=== PATIENT | female | born 1965 | race Caucasian/White ===

== ENCOUNTER 2020-08-17 15:33 | Outpatient (CLI) | payer OTHER, SELFPAY ==
--- NOTE | ~2020-08-17 | MM_ITS ---
EXAMINATION: MM screening berta BI w vinny HISTORY: Screening TECHNIQUE: Craniocaudal and mediolateral oblique 3-D tomosynthesis images were obtained and synthetic 2-D images were generated. CAD analysis was submitted and interpreted. COMPARISON: Comparison to multiple prior studies sequentially, with oldest reviewed study dated 05/22. BREAST PARENCHYMAL COMPOSITION: There are scattered areas of fibroglandular density. FINDINGS: There is no evidence of suspicious mass, calcification, or architectural distortion to sugg est malignancy in either breast. There has been no suspicious interval change. IMPRESSION: 1. No mammographic evidence of malignancy. 2. Recommend routine screening mammography in one year. BI-RADS Category 1: Negative Reviewed, dictated and finalized at location A.
== END 2020-08-17 15:34 | disposition home or self-care (01) ==
LOC: ANHIMG 15:42
PROVIDERS: PCP Family Medicine; Visit Provider Obstetrics & Gynecology
DX: Z12.31 Encounter for screening mammogram for malignant neoplasm of breast (principal)
CPT/HCPCS: 77063; 77067

== ENCOUNTER 2020-09-14 10:42 | Outpatient (CLI) | payer OTHER, SELFPAY ==
--- NOTE | ~2020-09-14 | US_ITS ---
EXAMINATION: US venous doppler [facility] DATE: 09/14/2020 11:33 INDICATION: Chronic deep vein thrombosis. TECHNIQUE: Grayscale ultrasound images without and with compression and Doppler ultrasound images of the bilateral lower extremity veins were obtained. COMPARISON: Ultrasound 04/03/2019 FINDINGS: The visualized portions of right common femoral vein, profunda (deep) femoral vein, femoral vein, pop liteal vein, peroneal veins, posterior tibial veins, and greater saphenous vein outflow are patent. The visualized portions of left common femoral vein, profunda femoral vein, femoral vein, popliteal v ein, peroneal veins, posterior tibial veins, and greater saphenous vein outflow are patent. There is a 1.2 seconds reflux in left popliteal vein. IMPRESSION: 1. No deep venous thrombosis. 2. Reflux in left popliteal vein. Reviewed, dictated and finalized at location B. ER COACH
== END 2020-09-14 10:43 | disposition home or self-care (01) ==
LOC: ANHIMG 10:49
PROVIDERS: PCP Family Medicine; Visit Provider Internal Medicine
DX: Z86.718 Personal history of other venous thrombosis and embolism (principal)
CPT/HCPCS: 93970

== ENCOUNTER 2021-07-01 14:40 | Outpatient (CLI) | payer OTHER, SELFPAY ==
--- NOTE | ~2021-07-01 | DEXA_ITS ---
Bone Density Report Name: Roselyn Vazquez Age: 56 Sex: Female Ethnicity: White Date of : 1965 Indication: postmenopausal; prior fracture; Referring Provider: Eran, Orquidea Gates Study: Bone densitometry was performed. Exam Date: July 01, 2021 Accession number: [id number] Bone Density: Region BMD T-score Z-score Classification AP Spine (L3, L4) 1.188 0.8 2.0 Normal Femoral Neck (Left) 0.826 -0.2 0.9 Normal Total Hip (Left) 1.064 1.0 1.7 Normal Total Hip Bilateral Avg 1.033 0.8 1.5 Normal Femoral Neck (Right) 0.884 0.3 1.4 Normal Total Hip (Right) 1.001 0.5 1.2 Normal World Health Organization criteria for BMD impression classify patients as: Normal (T-score at or above -1.0), Osteopenia (T-score between -1.0 and -2.5), or Osteoporosis (T-score at or below -2.5). 10-year Fracture Risk: FRAX not reported because: All T-scores for Spine Total, Hip Total, Femoral Neck at or above -1.0 Clinical Information Provided by Patient: Has had a low trauma fracture Has used the following medications: Vitamin D, Calcium Patient maximum height was 67 Menopause Age: 52 Onset of menses at age 13 Number of children 2 Impression: The patient has normal bone mass. The patient has risk factors, including: previous fracture. Discussion: BONE DENSITY IS ABOVE THE MINIMUM DESIRABLE LEVEL AT ALL SKELETAL SITES TESTED. This patient?s bone mineral density is above the minimum desirable level (T-score -1.0 or better) at all sites measured. The patient should follow a healthful lifestyle (good nutrition with adequate calcium and vitamin D, and appropriate weight-bearing exercise). Follow-Up: Consider repeating this study in 5 years or sooner if there is some new clinical indication. Reported by: [facility] on 07/01/2021 2:58:00 PM. Reviewed, dictated and finalized at location AHardik ADAM
== END 2021-07-01 14:41 | disposition home or self-care (01) ==
LOC: ANHIMG 14:41
PROVIDERS: PCP Family Medicine; Visit Provider Internal Medicine Endocrinology, Diabetes & Metabolism
DX: N95.9 Unspecified menopausal and perimenopausal disorder (principal); Z78.0 Asymptomatic menopausal state
CPT/HCPCS: 77080

== ENCOUNTER 2021-08-19 14:55 | Outpatient (CLI) | payer OTHER, SELFPAY ==
--- NOTE | ~2021-08-19 | MM_ITS ---
EXAMINATION: MM screening berta BI w vinny HISTORY: Screening TECHNIQUE: Craniocaudal and mediolateral oblique 3-D tomosynthesis images were obtained and synthetic 2-D images were generated. CAD analysis was submitted and interpreted. COMPARISON: Comparison to multiple prior studies sequentially, with oldest reviewed study dated 03/2016. BREAST PARENCHYMAL COMPOSITION: The breasts are almost entirely fatty. FINDINGS: There is no evidence of suspicious mass, calcification, or architectural distortion to sugg est malignancy in either breast. There has been no suspicious interval change. IMPRESSION: 1. No mammographic evidence of malignancy. 2. Recommend routine screening mammography in one year. BI-RADS Category 1: Negative Reviewed, dictated and finalized at location A.
== END 2021-08-19 14:56 | disposition home or self-care (01) ==
LOC: ANHIMG 14:57
PROVIDERS: PCP Family Medicine; Visit Provider Obstetrics & Gynecology
DX: Z12.31 Encounter for screening mammogram for malignant neoplasm of breast (principal)
CPT/HCPCS: 77063; 77067

== ENCOUNTER 2021-09-09 14:39 | Outpatient (CLI) | payer OTHER, SELFPAY ==
--- NOTE | ~2021-09-09 | US_ITS ---
EXAMINATION: US venous doppler [facility] DATE: 09/09/2021 15:30 INDICATION: Deep venous thrombosis TECHNIQUE: Grayscale ultrasound images without and with compression and Doppler ultrasound images of the bilateral lower extremity veins were obtained. COMPARISON: None. FINDINGS: The visualized portions of right common femoral vein, profunda (deep) femoral vein, femoral vein, pop liteal vein, posterior tibial veins, peroneal veins, gastrocnemius vein and greater saphenous vein ou tflow are patent. The visualized portions of left common femoral vein, profunda femoral vein, femoral vein, popliteal v ein, posterior tibial veins, peroneal veins, gastrocnemius vein and greater saphenous vein outflow ar e patent. IMPRESSION: 1. No deep venous thrombosis in either lower limb. Reviewed, dictated and finalized at location A.
== END 2021-09-09 14:40 | disposition home or self-care (01) ==
LOC: ANHIMG 14:43
PROVIDERS: PCP Family Medicine; Visit Provider Internal Medicine Medical Oncology
DX: Z86.718 Personal history of other venous thrombosis and embolism (principal)
CPT/HCPCS: 93970

== ENCOUNTER → 2022-10-13 07:52 | Outpatient (CLI) | payer OTHER, SELFPAY ==
--- NOTE | ~2022-10-13 | US_ITS ---
US right upper quadrant DATE: 10/13/2022 08:32 INDICATION: Elevated liver enzymes TECHNIQUE: Real-time imaging of liver, pancreas, gallbladder COMPARISON: None FINDINGS: No pancreatic mass lesion or pancreatic duct dilatation is detected. The pancreatic tail is not optimally imaged due to differences from bowel gas. Hepatic cysts are noted. The liver is otherwise unremarkable. Normal hepatopedal portal venous flow d irection. No gallstones or gallbladder wall thickening or abnormal pericholecystic fluid collection. Negative s onographic Spencer's sign. IMPRESSION: Hepatic cysts Negative gallbladder Reviewed, dictated and finalized at Location A. Reviewed, dictated and finalized at location B. TION AGENT
== END ==
PROVIDERS: PCP Family Medicine; Visit Provider Internal Medicine Endocrinology, Diabetes & Metabolism
DX: R74.01 Elevation of levels of liver transaminase levels (principal); K76.89 Other specified diseases of liver
CPT/HCPCS: 76705

== ENCOUNTER 2022-10-14 14:22 | Outpatient (CLI) | payer OTHER, SELFPAY ==
--- NOTE | ~2022-10-14 | MM_ITS ---
EXAMINATION: MM screening [facility] BI w vinny HISTORY: Screening mammogram TECHNIQUE: Craniocaudal and mediolateral oblique 3-D tomosynthesis images were obtained and synthetic 2-D images were generated. CAD analysis was submitted and interpreted. COMPARISON: 08/19/2021, 08/17/2020, 07/29/2019 BREAST PARENCHYMAL COMPOSITION: There are scattered areas of fibroglandular density. FINDINGS: No suspicious mass, calcification, or architectural distortion are identified in either zeke ast to suggest malignancy. There has been no suspicious interval change. IMPRESSION: 1. No mammographic evidence of malignancy. 2. Recommend routine screening mammography in one year. BI-RADS Category 1: Negative Reviewed, dictated and finalized at location A. FREIGHT CONDUCTOR
== END 2022-10-14 14:23 | disposition home or self-care (01) ==
LOC: ANHIMG 14:26
PROVIDERS: PCP Family Medicine; Visit Provider Family Medicine
DX: Z12.31 Encounter for screening mammogram for malignant neoplasm of breast (principal)
CPT/HCPCS: 77063; 77067

== ENCOUNTER → 2022-10-18 10:39 | Outpatient (CLI) | payer OTHER, SELFPAY ==
--- NOTE | ~2022-10-18 | MR_ITS ---
MRI of the pelvis CLINICAL HISTORY: Leiomyoma of uterus TECHNIQUE: Coronal T2-weighted, T2 fat-sat, and T1-weighted images, sagittal T2-weighted images, and axial T2-weighted, T2 fat sat, and T1-weighted in and out of phase images were performed. Following i ntravenous administration of 20 cc of MultiHance, T1-weighted fat-sat imaging was performed in the ax ial plane. FINDINGS: Uterus is anteverted. Right-sided intramural fibroid is present, T1 and T2 hypointense, clementina suring 5.0 x 4.9 x 5.3 cm. A smaller left-sided intramural fibroid with similar imaging characteristi cs is present, measuring 2.8 x 2.3 x 2.9 cm. There is mild distortion of the endometrial cavity due t o mass effect, but no other endometrial abnormality seen. No thickening of the junctional zone is jose dent. No other adnexal mass seen. Ovaries are not well visualized. No ascites present urinary bladder are u nremarkable. No lymphadenopathy. Visualized bowel loops are unremarkable. Bone marrow signals are unremarkable. IMPRESSION: Fibroid uterus, as detailed above. Reviewed, dictated and finalized at location [] FIELD MANAGER
== END ==
PROVIDERS: PCP Family Medicine
DX: D25.9 Leiomyoma of uterus, unspecified (principal)
CPT/HCPCS: 72197; A9577

== ENCOUNTER 2023-10-20 12:34 | Outpatient (CLI) | payer OTHER, SELFPAY ==
--- NOTE | ~2023-10-20 | MM_ITS ---
EXAMINATION: MM screening berta BI w vinny HISTORY: Screening TECHNIQUE: Craniocaudal and mediolateral oblique 3-D tomosynthesis images were obtained and synthetic 2-D images were generated. CAD analysis was submitted and interpreted. COMPARISON: Comparison to multiple prior studies sequentially, with oldest reviewed study dated 06/15. BREAST PARENCHYMAL COMPOSITION: The breasts are almost entirely fatty. FINDINGS: There is no evidence of suspicious mass, calcification, or architectural distortion to sugg est malignancy in either breast. There has been no suspicious interval change. IMPRESSION: 1. No mammographic evidence of malignancy. 2. Recommend routine screening mammography in one year. BI-RADS Category 1: Negative Reviewed, dictated and finalized at location A. PING COORDINATOR
== END 2023-10-20 12:35 | disposition home or self-care (01) ==
LOC: CHSIMG 12:36
PROVIDERS: PCP Family Medicine; Visit Provider Family Medicine
DX: Z12.31 Encounter for screening mammogram for malignant neoplasm of breast (principal)
CPT/HCPCS: 77063; 77067

== ENCOUNTER 2024-05-29 10:01 | Outpatient (CLI) | payer OTHER, SELFPAY ==
--- NOTE | ~2024-05-29 | XR_ITS ---
XR knee LT 3V Ordering provider: Betsy Olmstead PA-C History: . M25.562 - Pain in left knee . Comparison: November 24, 2014 FINDINGS: BONES: No acute fracture or dislocation. JOINT SPACES: Normal. Marginal osteophytes seen. SOFT TISSUES: Normal. IMPRESSION: No acute osseous abnormality left knee. Mild osteoarthritic changes. Reviewed, dictated and finalized at location A.
== END 2024-05-29 10:02 ==
LOC: MICIMG 10:03
PROVIDERS: PCP Family Medicine; Visit Provider Student in an Organized Health Care Education/Training Program
DX: S89.92XA Unspecified injury of left lower leg, initial encounter (principal); X58.XXXA Exposure to other specified factors, initial encounter; M17.12 Unilateral primary osteoarthritis, left knee
CPT/HCPCS: 73562

== ENCOUNTER 2024-06-03 08:52 | Outpatient (CLI) | payer OTHER, SELFPAY ==
--- NOTE | ~2024-06-03 | MR_ITS ---
MRI of the left knee Clinical history: Injury Technique: Coronal proton density and proton density-weighted images, sagittal proton-density and T2 fat-sat images, and axial proton-density fat-saturated images were acquired. Findings: Anterior and posterior cruciate ligaments are intact. Medial collateral ligament and the la teral collateral ligament complex are intact. Popliteus tendon is intact. There is a radial tear at the posterior root of the medial meniscus. No lateral meniscal tear seen. 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 There is als o grade IV chondromalacia involving the superior aspect of the femoral trochlea. There is a relativel y shallow femoral trochlear groove. There is patchy moderate chondromalacia the medial femoral condyl e. There is moderate to high-grade chondral malacia the lateral femoral condyle towards the joint yasmeen e. Tricompartmental osteophytes are present. Extensor mechanism is intact. Moderate joint effusion present. Moderate Estrella's cyst present. Impression: Radial tear of the posterior root of the medial meniscus. 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 Moderate joint effusion and moderate Estrella's cyst. Reviewed, dictated and finalized at location . Impression: Radial tear of the posterior root of the medial meniscus. 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 Moderate joint effusion and moderate Estrella's cyst.
== END 2024-06-03 08:53 ==
LOC: GOSHIMG 08:53
PROVIDERS: PCP Family Medicine; Visit Provider Student in an Organized Health Care Education/Training Program
DX: S83.242A Other tear of medial meniscus, current injury, left knee, initial encounter (principal); X58.XXXA Exposure to other specified factors, initial encounter; M25.462 Effusion, left knee; M17.12 Unilateral primary osteoarthritis, left knee; M71.22 Synovial cyst of popliteal space [Baker], left knee
CPT/HCPCS: 73721

== ENCOUNTER 2024-11-27 14:43 | Outpatient (CLI) | payer OTHER, SELFPAY ==
--- NOTE | ~2024-11-27 | MM_ITS ---
EXAMINATION: MM screening berta BI w vinny HISTORY: Screening TECHNIQUE: Craniocaudal and mediolateral oblique 3-D tomosynthesis images were obtained and synthetic 2-D images were generated. CAD analysis was submitted and interpreted. COMPARISON: Comparison to multiple prior studies sequentially, with oldest reviewed study dated 07/26. BREAST PARENCHYMAL COMPOSITION: Not Dense: The breasts are almost entirely fatty. FINDINGS: There is no evidence of suspicious mass, calcification, or architectural distortion to sugg est malignancy in either breast. There has been no suspicious interval change. IMPRESSION: 1. No mammographic evidence of malignancy. 2. Recommend routine screening mammography in one year. BI-RADS Category 1: Negative Reviewed, dictated and finalized at location A. AL WORK JOB TITLES
--- OUTSIDE RECORDS SUMMARY | 2024-11-29 02:24 | XMS_ITS | Data Portability ---
Author Organization [facility] [employer], Main Office Address [address] [place] [address] Assessment No assessment recorded. Plan of Treatment Reminders Order Date Submit Date Provider Last Modified By Organization Details Last Modified Time Details Appointments None recorded. Lab vitamin B12 + folate, serum or blood 2022 023 [id number] [facility], [address], [address], [place], [address], 3 14:28:10 TSH + free T4, serum 2022 023 [email or web address] [facility], [address], [place], [address], 3 14:28:10 T3, free, serum or plasma 2022 023 [email or web address] [facility], [address], [place], [address], 3 14:28:10 thyroid peroxidase (tpo) Ab, serum 2022 023 [email or web address] [facility], [address], [place], [address], 3 14:28:10 HbA1c (hemoglobin A1c), blood 2022 023 [email or web address] [facility], [address], [place], [address], 3 14:28:09 insulin, serum 2022 023 [email or web address] [facility], [address], [place], [address], 3 14:28:10 CMP, serum or plasma 2022 023 [email or web address] [facility], [address], [place], [address], 3 14:28:10 lipid panel, serum 2022 023 [email or web address] [facility], [address], [place], [address], 3 12:01:30 Referral None recorded. Procedures None recorded. Surgeries None recorded. Imaging home sleep study 2022 023 [email or web address] [facility] ([facility]), [address] [facility] [facility] [address], [place], [address], 3 12:09:20 Medication Orders cyanocobala min (vit B-12) 1,000 mcg/mL injection solution 2022 023 [id number] [facility], [address] [place], [address], 3 13:54:12 Patient TargetsNo targets recorded. Patient InstructionsNo instructions recorded. Reason for Referral None Reported. Results Created Date Observation Date Name Description Value Unit Range Abnormal Flag Note LastModifiedBy Organization Detail LastModifiedTime 11/08/19 22 11/09/2021 HEMOG LOBIN A1C hemoglobin A1C 5.6 %_of_ total _HGB <5.7 normal Not Available [employer] [facility] [address], [address], 11/09/2021 15:35:57 11/08/19 22 11/09/2021 TSH+F REE T4 TSH 2.92 mIU/L 0.40-4 .50 normal Not Available [employer] [facility] [address] [place] [address], [address], 11/09/2021 15:35:56 11/08/19 22 11/09/2021 TSH+F REE T4 T4, free 1.1 NG/dL 0.8-1. 8 normal Not Available [facility] [address], [address], 11/09/2021 15:35:56 11/08/19 22 11/09/2021 T3, FREE T3, free 3.6 pg/mL 2.3-4. 2 normal Not Available [facility] [address], [address], 11/09/2021 15:35:55 11/08/19 22 11/09/2021 INSUL IN insulin 6.8 uIU/m L normal Refer ence Range < or = 19.6 Risk: Optim al < or = 19.6 Moder ate NA High >19.6 Adult cardi ovasc ular event risk categ ory cut point s (opti mal, moder ate, high) are based on [facility] popul ation data from 10/25 11. This insul in assay shows stron g cross -reac tivit y for some insul in analo gs (lisp ro, aspar t, and glarg ine) and much lower cross -reac tivit y with other s (dete ryne, gluli sine) . Not Available [employer] [address], [address], 11/09/2021 15:35:54 11/08/19 22 11/09/2021 THYRO ID PEROX IDASE ANTIB ODIES thyroid peroxidase antibodies <1 IU/mL <9 normal Not Available [facility] [address], [address], 11/09/2021 15:35:52 11/08/19 22 11/09/2021 COMPR EHENS HERMANN METAB OLIC PANEL glucose 89 mg/dL 65-99 normal Fasti ng refer ence inter phil Not Available [employer] [address] [place], [address], 11/09/2021 15:35:52 11/08/19 22 11/09/2021 COMPR EHENS HERMANN METAB OLIC PANEL urea nitrogen (BUN) 13 mg/dL 7-25 normal Not Available [address], [address], 11/09/2021 15:35:52 11/08/19 22 11/09/2021 COMPR EHENS HERMANN METAB OLIC PANEL creatinine 0.70 mg/dL 0.50-1 .05 normal For patie nts >49 years of age, the refer ence limit for Creat inine is appro ximat ron 13% highe r for peopl e ident ified as Afric an-Am pratibha n. Not Available [address], [address], 11/09/2021 15:35:52 11/08/19 22 11/09/2021 COMPR EHENS HERMANN METAB OLIC PANEL eGFR non-afr. german 97 mL/mi n/1.7 3m2 > or = 60 normal Not Available [address], [address], 11/09/2021 15:35:52 11/08/19 22 11/09/2021 COMPR EHENS HERMANN METAB OLIC PANEL eGFR 112 mL/mi n/1.7 3m2 > or = 60 normal Not Available [facility] [address], [address], 11/09/2021 15:35:52 11/08/19 22 11/09/2021 COMPR EHENS HERMANN METAB OLIC PANEL BUN/creatini ne ratio not applic able (calc ) 6-22 Not Available [facility] [address], [address], 11/09/2021 15:35:52 11/08/19 22 11/09/2021 COMPR EHENS HERMANN METAB OLIC PANEL sodium 139 mmol/ L 135-14 6 normal Not Available [address], [address], 11/09/2021 15:35:52 11/08/19 22 11/09/2021 COMPR EHENS HERMANN METAB OLIC PANEL potassium 4.0 mmol/ L 3.5-5. 3 normal Not Available [address], [address], 11/09/2021 15:35:52 11/08/19 22 11/09/2021 COMPR EHENS HERMANN METAB OLIC PANEL chloride 104 mmol/ L 98-110 normal Not Available [address], [address], 11/09/2021 15:35:52 11/08/19 22 11/09/2021 COMPR EHENS HERMANN METAB OLIC PANEL carbon dioxide 28 mmol/ L 20-32 normal Not Available [address], [address], 11/09/2021 15:35:52 11/08/19 22 11/09/2021 COMPR EHENS HERMANN METAB OLIC PANEL calcium 9.3 mg/dL 8.6-10 .4 normal Not Available [address], [address], 11/09/2021 15:35:52 11/08/19 22 11/09/2021 COMPR EHENS HERMANN METAB OLIC PANEL protein, total 6.4 g/dL 6.1-8. 1 normal Not Available [address], [address], 11/09/2021 15:35:52 11/08/19 22 11/09/2021 COMPR EHENS HERMANN METAB OLIC PANEL albumin 4.3 g/dL 3.6-5. 1 normal Not Available [address], [address], 11/09/2021 15:35:52 11/08/19 22 11/09/2021 COMPR EHENS HERMANN METAB OLIC PANEL globulin 2.1 g/dL_ (calc ) 1.9-3. 7 normal Not Available [address], [address], 11/09/2021 15:35:52 11/08/19 22 11/09/2021 COMPR EHENS HERMANN METAB OLIC PANEL albumin/glob ulin ratio 2.0 (calc ) 1.0-2. 5 normal Not Available [address], [address], 11/09/2021 15:35:52 11/08/19 22 11/09/2021 COMPR EHENS HERMANN METAB OLIC PANEL bilirubin, total 1.0 mg/dL 0.2-1. 2 normal Not Available [address], [address], 11/09/2021 15:35:52 11/08/19 22 11/09/2021 COMPR EHENS HERMANN METAB OLIC PANEL alkaline phosphatase 63 U/L 37-153 normal Not Available [address], [address], 11/09/2021 15:35:52 11/08/19 22 11/09/2021 COMPR EHENS HERMANN METAB OLIC PANEL AST 28 U/L 10-35 normal Not Available [address], [address], 11/09/2021 15:35:52 11/08/19 22 11/09/2021 COMPR EHENS HERMANN METAB OLIC PANEL ALT 36 U/L 6-29 high Not Available [address], [address], 11/09/2021 15:35:52 01/03/20 22 01/04/2022 HEMOG LOBIN A1C hemoglobin A1C 5.4 %_of_ total _HGB <5.7 normal For the purpo se of miriam blevins for the prese nce of diabe macy: <5.7% Consi stent with the absen ce of diabe macy 5.7-6 .4% Consi stent with incre ased risk for diabe macy (pred iabet es) > or =6.5% Consi stent with diabe macy This assay resul t is consi stent with a decre ased risk of diabe macy. Curre ntly, no conse nsus exist s neelam tom use of hemog lobin A1c for diagn osis of diabe macy in child yuri. Accor ding to Ameri can Diabe macy Assoc iatio n (ADA) guide lines , hemog lobin A1c <7.0% repre sents optim al contr ol in non-p regna nt diabe tic patie nts. Diffe rent metri cs may apply to speci fic patie nt popul ation s. Stand ards of Medic al Care in Diabe macy(A DA). Not Available [facility] [address] [address] [place], [address], 01/04/2022 17:31:40 01/03/20 22 01/04/2022 TSH+F REE T4 TSH 3.44 mIU/L 0.40-4 .50 normal Not Available [facility] [address] [address] [place], [address], 01/04/2022 17:31:40 01/03/20 22 01/04/2022 TSH+F REE T4 T4, free 1.2 NG/dL 0.8-1. 8 normal Not Available [facility] [address] [address] [place], [address], 01/04/2022 17:31:40 01/03/20 22 01/04/2022 T3, FREE T3, free 3.7 pg/mL 2.3-4. 2 normal Not Available [facility] [address] [address] [place], [address], 01/04/2022 17:31:39 01/03/20 22 01/04/2022 INSUL IN insulin 8.1 uIU/m L normal Refer ence Range < or = 19.6 Risk: Optim al < or = 19.6 Moder ate NA High >19.6 Adult cardi ovasc ular event risk categ ory cut point s (opti mal, moder ate, high) are based on [facility] popul ation data from 10/25 11. This insul in assay shows stron g cross -reac tivit y for some insul in analo gs (lisp ro, aspar t, and glarg ine) and much lower cross -reac tivit y with other s (dete ryne, gluli sine) . Not Available [employer] [address], [address], 01/04/2022 17:31:38 01/03/20 22 01/04/2022 THYRO ID PEROX IDASE ANTIB ODIES thyroid peroxidase antibodies <1 IU/mL <9 normal Not Available [employer] [address] [address] [place], [address], 01/04/2022 17:31:38 01/03/20 22 01/04/2022 COMPR EHENS HERMANN METAB OLIC PANEL glucose 92 mg/dL 65-99 normal Fasti ng refer ence inter phil Not Available [employer] [address], [address], 01/04/2022 17:31:37 01/03/20 22 01/04/2022 COMPR EHENS HERMANN METAB OLIC PANEL urea nitrogen (BUN) 12 mg/dL 7-25 normal Not Available [facility] [address], [address], 01/04/2022 17:31:37 01/03/20 22 01/04/2022 COMPR EHENS HERMANN METAB OLIC PANEL creatinine 0.66 mg/dL 0.50-1 .05 normal For patie nts >49 years of age, the refer ence limit for Creat inine is appro ximat ron 13% highe r for peopl e ident ified as Afric an-Am pratibha n. Not Available [address], [address], 01/04/2022 17:31:37 01/03/20 22 01/04/2022 COMPR EHENS HERMANN METAB OLIC PANEL eGFR non-afr. german 99 mL/mi n/1.7 3m2 > or = 60 normal Not Available [address], [address], 01/04/2022 17:31:37 01/03/20 22 01/04/2022 COMPR EHENS HERMANN METAB OLIC PANEL eGFR 114 mL/mi n/1.7 3m2 > or = 60 normal Not Available [address], [address], 01/04/2022 17:31:37 01/03/20 22 01/04/2022 COMPR EHENS HERMANN METAB OLIC PANEL BUN/creatini ne ratio not applic able (calc ) 6-22 Not Available [address], [address], 01/04/2022 17:31:37 01/03/20 22 01/04/2022 COMPR EHENS HERMANN METAB OLIC PANEL sodium 141 mmol/ L 135-14 6 normal Not Available [address], [address], 01/04/2022 17:31:37 01/03/20 22 01/04/2022 COMPR EHENS HERMANN METAB OLIC PANEL potassium 3.7 mmol/ L 3.5-5. 3 normal Not Available [address], [address], 01/04/2022 17:31:37 01/03/20 22 01/04/2022 COMPR EHENS HERMANN METAB OLIC PANEL chloride 103 mmol/ L 98-110 normal Not Available [address], [address], 01/04/2022 17:31:37 01/03/20 22 01/04/2022 COMPR EHENS HERMANN METAB OLIC PANEL carbon dioxide 25 mmol/ L 20-32 normal Not Available [address], [address], 01/04/2022 17:31:37 01/03/20 22 01/04/2022 COMPR EHENS HERMANN METAB OLIC PANEL calcium 9.6 mg/dL 8.6-10 .4 normal Not Available [address], [address], 01/04/2022 17:31:37 01/03/20 22 01/04/2022 COMPR EHENS HERMANN METAB OLIC PANEL protein, total 6.4 g/dL 6.1-8. 1 normal Not Available [address], [address], 01/04/2022 17:31:37 01/03/20 22 01/04/2022 COMPR EHENS HERMANN METAB OLIC PANEL albumin 4.1 g/dL 3.6-5. 1 normal Not Available [address], [place], [address], 01/04/2022 17:31:37 01/03/20 22 01/04/2022 COMPR EHENS HERMANN METAB OLIC PANEL globulin 2.3 g/dL_ (calc ) 1.9-3. 7 normal Not Available [address], [address], 01/04/2022 17:31:37 01/03/20 22 01/04/2022 COMPR EHENS HERMANN METAB OLIC PANEL albumin/glob ulin ratio 1.8 (calc ) 1.0-2. 5 normal Not Available [address], [address], 01/04/2022 17:31:37 01/03/20 22 01/04/2022 COMPR EHENS HERMANN METAB OLIC PANEL bilirubin, total 0.7 mg/dL 0.2-1. 2 normal Not Available [address], [address], 01/04/2022 17:31:37 01/03/20 22 01/04/2022 COMPR EHENS HERMANN METAB OLIC PANEL alkaline phosphatase 59 U/L 37-153 normal Not Available [facility] [address] [address] [place], [address], 01/04/2022 17:31:37 01/03/20 22 01/04/2022 COMPR EHENS HERMANN METAB OLIC PANEL AST 17 U/L 10-35 normal Not Available [address] [address] [place], [address], 01/04/2022 17:31:37 01/03/20 22 01/04/2022 COMPR EHENS HERMANN METAB OLIC PANEL ALT 18 U/L 6-29 normal Not Available [facility] [address] [address] [place], [address], 01/04/2022 17:31:37 07/06/20 22 07/07/2022 HEMOG LOBIN A1C hemoglobin A1C 5.5 %_of_ total _HGB <5.7 normal For the purpo se of miriam blevins for the prese nce of diabe macy: <5.7% Consi stent with the absen ce of diabe macy 5.7-6 .4% Consi stent with incre ased risk for diabe macy (pred iabet es) > or =6.5% Consi stent with diabe macy This assay resul t is consi stent with a decre ased risk of diabe macy. Curre ntly, no conse nsus exist s neelam tom use of hemog lobin A1c for diagn osis of diabe macy in child yuri. Accor ding to Ameri can Diabe macy Assoc iatio n (ADA) guide lines , hemog lobin A1c <7.0% repre sents optim al contr ol in non-p regna nt diabe tic patie nts. Diffe rent metri cs may apply to speci fic patie nt popul ation s. Stand ards of Medic al Care in Diabe amcy(A DA). Not Available [facility] [address] [place], [address], 07/07/2022 19:24:21 07/06/20 22 07/07/2022 VITAM IN B12/F OLATE , SERUM PANEL vitamin B12 1064 pg/mL 200-11 00 normal Not Available [facility] [address] [place], [address], 07/07/2022 19:24:21 07/06/20 22 07/07/2022 VITAM IN B12/F OLATE , SERUM PANEL folate, serum 16.5 NG/mL normal Refer ence Range Low: <3.4 Borde rline : 3.4-5 .4 Cara l: >5.4 Not Available [facility] [address] [place], [address], 07/07/2022 19:24:21 07/06/20 22 07/07/2022 TSH TSH 2.54 mIU/L 0.40-4 .50 normal Not Available [facility] [address] [place], [address], 07/07/2022 19:24:20 07/06/20 22 07/07/2022 T4, FREE T4, free 1.2 NG/dL 0.8-1. 8 normal Not Available [facility] [address] [place], [address], 07/07/2022 19:24:20 07/06/2007/07/2022 INSUL IN insulin 7.6 uIU/m L normal Refer ence Range < or = 19.6 Risk: Optim al < or = 19.6 Moder ate NA High >19.6 Adult cardi ovasc ular event risk categ ory cut point s (opti mal, moder ate, high) are based on [facility] popul ation data from 10/25 11. This insul in assay shows stron g cross -reac tivit y for some insul in analo gs (lisp ro, aspar t, and glarg ine) and much lower cross -reac tivit y with other s (dete ryne, gluli sine) . Not Available [employer] [address] [address] [place], [address], 07/07/2022 19:24:20 07/06/20 22 07/07/2022 COMPR EHENS HERMANN METAB OLIC PANEL glucose 100 mg/dL 65-99 high Fasti ng refer ence inter phil For someo ne witho ut known diabe macy, a gluco se value betwe en 100 and 125 mg/dL is consi stent with predi abete s and shoul d be confi rmed with a follo w-up test. Not Available [facility] [address] [address] [place], [address], 07/07/2022 19:24:19 07/06/20 22 07/07/2022 COMPR EHENS HERMANN METAB OLIC PANEL urea nitrogen (BUN) 14 mg/dL 7-25 normal Not Available [facility] [address] [address] [place], [address], 07/07/2022 19:24:19 07/06/20 22 07/07/2022 COMPR EHENS HERMANN METAB OLIC PANEL creatinine 0.63 mg/dL 0.50-1 .03 normal Not Available [facility] [address] [address] [place], [address], 07/07/2022 19:24:19 07/06/20 22 07/07/2022 COMPR EHENS HERMANN METAB OLIC PANEL eGFR 103 mL/mi n/1.7 3m2 > or = 60 normal The eGFR is based on the CKD-E PI 2020 equat ion. To calcu late the new eGFR from a previ ous Creat inine or Cysta faizan C resul t, go to https ://tim mclainy.o rg/pr ofess ional s/ kdoqi /gfr% 5Fcal culat or Not Available [address], [address], 07/07/2022 19:24:19 07/06/20 22 07/07/2022 COMPR EHENS HERMANN METAB OLIC PANEL BUN/creatini ne ratio not applic able (calc ) 6-22 Not Available [address], [address], 07/07/2022 19:24:19 07/06/20 22 07/07/2022 COMPR EHENS HERMANN METAB OLIC PANEL sodium 141 mmol/ L 135-14 6 normal Not Available [address], [address], 07/07/2022 19:24:19 07/06/20 22 07/07/2022 COMPR EHENS HERMANN METAB OLIC PANEL potassium 4.4 mmol/ L 3.5-5. 3 normal Not Available [address], [address], 07/07/2022 19:24:19 07/06/20 22 07/07/2022 COMPR EHENS HERMANN METAB OLIC PANEL chloride 105 mmol/ L 98-110 normal Not Available [address], [address], 07/07/2022 19:24:19 07/06/20 22 07/07/2022 COMPR EHENS HERMANN METAB OLIC PANEL carbon dioxide 27 mmol/ L 20-32 normal Not Available [address], [address], 07/07/2022 19:24:19 07/06/20 22 07/07/2022 COMPR EHENS HERMANN METAB OLIC PANEL calcium 9.7 mg/dL 8.6-10 .4 normal Not Available [address], [address], 07/07/2022 19:24:19 07/06/20 22 07/07/2022 COMPR EHENS HERMANN METAB OLIC PANEL protein, total 6.6 g/dL 6.1-8. 1 normal Not Available [address], [address], 07/07/2022 19:24:19 07/06/20 22 07/07/2022 COMPR EHENS HERMANN METAB OLIC PANEL albumin 4.3 g/dL 3.6-5. 1 normal Not Available [address], [address], 07/07/2022 19:24:19 07/06/20 22 07/07/2022 COMPR EHENS HERMANN METAB OLIC PANEL globulin 2.3 g/dL_ (calc ) 1.9-3. 7 normal Not Available [address], [address], 07/07/2022 19:24:19 07/06/20 22 07/07/2022 COMPR EHENS HERMANN METAB OLIC PANEL albumin/glob ulin ratio 1.9 (calc ) 1.0-2. 5 normal Not Available [address], [address], 07/07/2022 19:24:19 07/06/2007/07/2022 COMPR EHENS HERMANN METAB OLIC PANEL bilirubin, total 0.7 mg/dL 0.2-1. 2 normal Not Available [address], [address], 07/07/2022 19:24:19 07/06/20 22 07/07/2022 COMPR EHENS HERMANN METAB OLIC PANEL alkaline phosphatase 61 U/L 37-153 normal Not Available [address], [address], 07/07/2022 19:24:19 07/06/20 22 07/07/2022 COMPR EHENS HERMANN METAB OLIC PANEL AST 25 U/L 10-35 normal Not Available [facility] [address] [place], [address], 07/07/2022 19:24:19 07/06/20 22 07/07/2022 COMPR EHENS HERMANN METAB OLIC PANEL ALT 33 U/L 6-29 high Not Available [facility] [address] [place], [address], 07/07/2022 19:24:19 09/09/20 22 09/18/2022 DHEA SULFA TE DHEA sulfate 88 mcg/d L 5-167 normal DHEA- S value s fall with advan cing age. For refer ence, the refer ence inter vals for 31-40 year old patie nts are: Male: 93-41 5 mcg/d L Femal e: 19-23 7 mcg/d L Not Available [address] [address] , [place], [address], 09/19/2022 00:05:23 09/09/20 22 09/18/2022 MISAEL SCREE N, IFA, W/REF L TITER AND MARY RN MISAEL screen, ifa negati ve negati ve normal MISAEL IFA is a first line scree n for detec ting the prese nce of up to appro ximat ron 150 autoa ntibo dies in vario us autoi mmune disea ses. A negat hermann MISAEL IFA resul t sugge sts an MISAEL-a ssoci ated autoi mmune disea se is not prese nt at this time, but is not defin itive . If there is high clini sanjana suspi cion for Sjogr en's syndr ome, testi ng for anti- SS-A/ Ro antib geo shoul d be consi dered . Anti- Viktoriya-1 antib geo shoul d be consi dered for clini kristie suspe cted infla mmato ry myopa da . AC-0: Negat hermann Inter natio nal Conse nsus on MISAEL Patte rns (http s://d oi.or g/10. 1515/ [facility]- 2017- 0052) For addit ional infor myra foy e refer to http: //[facility] pete petersonQue stDia gnost ics.c om/fa q/FAQ 177 (This link is being provi ded for infor kendy strauss/ educa madeleine l purpo ses only. ) Not Available [address] [address] [place], [address], 09/19/2022 00:05:22 09/09/20 22 09/18/2022 MITOC HONDR IA M2 ANTIB GEO (IGG) , EIA mitochondria M2 antibody (IgG), EIA <20.0 U Refer ence Range : NEGAT HERMANN: < OR = 20.0 EQUIV OCAL: 20.1- 24.9 POSIT HERMANN: > OR = 25.0 Not Available [address] [address] [place], [address], 09/19/2022 00:05:22 09/09/20 22 09/18/2022 LIVER KIDNE Y MICRO SOME (LKM- 1) AB (IGG) lkm-1 antibody (IgG) <=20.0 U <=20.0 Refer ence Range : <=20. 0 Negat hermann 20.1- 24.9 Equiv ocal >=25. 0 Posit hermann Anti- liver /kidn ey micro somal antib odies (Anti -LKM- 1) were previ ously teste d by indir ect immun ofluo resce nce (IF) using tracey t liver /kidn ey subst rate. Ident ifica tion of a speci fic antib geo targe t as cytoc hrome P450 IID6 has led to the curre nt recom binan t based VAISHNAVI . Antib odies to this cytoc hrome are prese nt in appro ximat ron 70% of patie nts with autoi mmune hepat itis type 2. This antib geo is also prese nt in appro ximat ron 10% of patie nts with hepat itis C infec tion. Not Available [employer] - [address], [address], 09/19/2022 00:05:21 09/09/20 22 09/18/2022 TESTO STERO NE, FREE, BIOAV AILAB LE AND TOTAL , MS albumin 4.3 g/dL 3.6-5. 1 Not Available [address], [address], 09/19/2022 00:05:21 09/09/20 22 09/18/2022 TESTO STERO NE, FREE, BIOAV AILAB LE AND TOTAL , MS sex hormone binding globulin 65.0 nmol/ L 14 Not Available [address], [address], 09/19/2022 00:05:21 09/09/20 22 09/18/2022 TESTO STERO NE, FREE, BIOAV AILAB LE AND TOTAL , MS testosterone , free 2.1 pg/mL 0.2-5. 0 Not Available [address], [address], 09/19/2022 00:05:21 09/09/20 22 09/18/2022 TESTO STERO NE, FREE, BIOAV AILAB LE AND TOTAL , MS testosterone ,bioavailabl e 4.1 NG/dL 0.5-8. 5 Not Available [address], [address], 09/19/2022 00:05:21 09/09/20 22 09/18/2022 TESTO STERO NE, FREE, BIOAV AILAB LE AND TOTAL , MS testosterone , total, MS 31 NG/dL 2-45 For addit ional nabilr myra foy e refer to https ://ed ucati on.qu laura [employer]. com/f aq/FA Q165 (This link is being provi ded for infor kendy nal/e ducat ional purpo ses only. ) (Note ) This test was devel oped and its kecia tical perfo rmanc e tray cteri stics have been deter mined by [employer]. It has not been clear ed or appro nico by the FDA. This assay has been valid ated pursu ant to the CLIA regul ation s and is used for clini sanjana purpo ses. JO ANN wilson [address] [facility] [address] [place] [address] [phone] Raheel mota MD Not Available [address] [address] [place], [address], 09/19/2022 00:05:21 09/09/20 22 09/18/2022 HEPAT ITIS PANEL , ACUTE W/REF RUDY TO CONFI RMATI ON hepatitis A IgM non-re active non-re active normal For addit ional infor myra foy e refer to http: //[email or web address] om/fa q/FAQ (This link is being provi ded for infor kendy strauss/ [facility] only. ) Not Available [facility] [address] [address] [address], [place], [address], 09/19/2022 00:05:20 09/09/20 22 09/18/2022 HEPAT ITIS PANEL , ACUTE W/REF RUDY TO CONFI RMATI ON hepatitis B surface antigen non-re active non-re active normal Not Available [facility] [address] [address] [place], [address], 09/19/2022 00:05:20 09/09/20 22 09/18/2022 HEPAT ITIS PANEL , ACUTE W/REF RUDY TO CONFI RMATI ON hepatitis B core antibody (IgM) non-re active non-re active normal Not Available [facility] [address] [address] [place], [address], 09/19/2022 00:05:20 09/09/20 22 09/18/2022 HEPAT ITIS PANEL , ACUTE W/REF RUDY TO CONFI RMATI ON hepatitis C antibody non-re active non-re active normal Not Available [address] [address] [place], [address], 09/19/2022 00:05:20 09/09/2009/18/2022 HEPAT ITIS PANEL , ACUTE W/REF RUDY TO CONFI RMATI ON index 0.00 <1.00 normal HCV antib geo was non-r eacti ve. There is no labor atory evide nce of HCV infec tion. In most cases , no furth er actio n is requi red. Howev er, if recen t HCV expos ure is suspe cted, a test for HCV RNA (test code 56461 ) is sugnarayan [place]. For addit ional infor kendy retneria e refer to http: //[facility] pete peralta stdia gnost ics.c om/fa q/FAQ 22v1 (This link is being provi ded for infor kendy strauss/ educa madeleine l purpo ses only. ) Not Available [address] , [place], [address], 09/19/2022 00:05:20 09/09/2009/18/2022 IRON, TIBC AND MOUNA TIN PANEL iron, total 94 mcg/d L 45-160 normal Not Available [address] [address] [place], [address], 09/19/2022 00:05:20 09/09/2009/18/2022 IRON, TIBC AND MOUNA TIN PANEL iron binding capacity 339 mcg/d L_(ca lc) 250-45 0 normal Not Available [address] [address] [place], [address], 09/19/2022 00:05:20 09/09/2009/18/2022 IRON, TIBC AND MOUNA TIN PANEL % saturation 28 %_(ca lc) 16-45 normal Not Available [address] [address] [place], [address], 09/19/2022 00:05:20 09/09/20 22 09/18/2022 IRON, TIBC AND MOUNA TIN PANEL ferritin 59 NG/mL 16-232 normal Not Available [address], [address], 09/19/2022 00:05:20 01/28/20 23 02/10/2023 IRON, TIBC AND MOUNA TIN PANEL iron, total 72 mcg/d L 45-160 normal Not Available [address], [address], 02/10/2023 17:43:47 01/28/20 23 02/10/2023 IRON, TIBC AND MOUNA TIN PANEL iron binding capacity 335 mcg/d L_(ca lc) 250-45 0 normal Not Available [address], [address], 02/10/2023 17:43:47 01/28/20 23 02/10/2023 IRON, TIBC AND MOUNA TIN PANEL % saturation 21 %_(ca lc) 16-45 normal Not Available [address], [address], 02/10/2023 17:43:47 01/28/20 23 02/10/2023 IRON, TIBC AND MOUNA TIN PANEL ferritin 47 NG/mL 16-232 normal Not Available [address], [address], 02/10/2023 17:43:47 01/28/20 23 02/10/2023 HEPAT ITIS PANEL , ACUTE W/REF RUDY TO CONFI RMATI ON hepatitis A IgM NON-RE ACTIVE non-re active normal For addit ional myra mcdermott refer to http: //guerline peralta stdia gnost ics.c om/fa q/FAQ 202 (This link is being provi ded for leydi strauss/ leilani hodges ses only. ) Not Available [address] [place], [address], 02/10/2023 17:43:47 01/28/20 23 02/10/2023 HEPAT ITIS PANEL , ACUTE W/REF RUDY TO CONFI RMATI ON hepatitis B surface antigen NON-RE ACTIVE non-re active normal Not Available [address] [address] [place], [address], 02/10/2023 17:43:47 01/28/20 23 02/10/2023 HEPAT ITIS PANEL , ACUTE W/REF RUDY TO CONFI RMATI ON hepatitis B core antibody (IgM) NON-RE ACTIVE non-re active normal Not Available [address], [address], 02/10/2023 17:43:47 01/28/20 23 02/10/2023 HEPAT ITIS PANEL , ACUTE W/REF RUDY TO CONFI RMATI ON hepatitis C antibody NON-RE ACTIVE non-re active normal Not Available [address] , [place], [address], 02/10/2023 17:43:47 01/28/2002/10/2023 HEPAT ITIS PANEL , ACUTE W/REF RUDY TO CONFI RMATI ON index <0.02 <1.00 normal HCV antib geo was non-r eacti ve. There is no labor atory evide nce of HCV infec tion. In most cases , no furth er actio n is requi red. Howev er, if recen t HCV expos ure is suspe cted, a test for HCV RNA (test code 66475 ) is sugge sted. For addit ional infor kendy wilson pleas e refer to http: //[facility] pete peralta stdia gnost ics.c om/fa q/FAQ 22v1 (This link is being provi ded for infor kendy strauss/ educa madeleine l purpo ses only. ) Not Available [address] [address] [place], [address], 02/10/2023 17:43:47 01/28/2002/10/2023 TESTO STERO NE, FREE, BIOAV AILAB LE AND TOTAL , MS albumin 4.3 g/dL 3.6-5. 1 Not Available [address], [address], 02/10/2023 17:43:48 01/28/2002/10/2023 TESTO STERO NE, FREE, BIOAV AILAB LE AND TOTAL , MS sex hormone binding globulin 63.1 nmol/ L 14-73 Not Available [address], [address], 02/10/2023 17:43:48 01/28/2002/10/2023 TESTO STERO NE, FREE, BIOAV AILAB LE AND TOTAL , MS testosterone , free 2.0 pg/mL 0.2-5. 0 Not Available [address], [address], 02/10/2023 17:43:48 01/28/2002/10/2023 TESTO STERO NE, FREE, BIOAV AILAB LE AND TOTAL , MS testosterone ,bioavailabl e 3.9 NG/dL 0.5-8. 5 Not Available [address], [address], 02/10/2023 17:43:48 01/28/2002/10/2023 TESTO STERO NE, FREE, BIOAV AILAB LE AND TOTAL , MS testosterone , total, MS 29 NG/dL 2-45 For addit ional infor myra foy e refer to https ://ed ucati on.qu laura [employer]. com/f aq/FA Q165 (This link is being provi ded for infor kendy nal/e ducat ional purpo ses only. ) (Note ) This test was devel oped and its kecia tical perfo rmanc e tray cteri stics have been deter mined by [employer] panfilo. It has not been clear ed or appro nico by the FDA. This assay has been valid ated pursu ant to the CLIA regul ation s and is used for clini sanjana purpo ses. F med fusio n [address] [place] [address] [phone] Raheel mota MD Not Available [employer] [address] [address] [place], [address], 02/10/2023 17:43:48 01/28/20 23 02/10/2023 COMPR EHENS HERMANN METAB OLIC PANEL glucose 97 mg/dL 65-99 normal Fasti ng refer ence inter phil Not Available [address] [place], [address], 02/10/2023 17:43:48 01/28/20 23 02/10/2023 COMPR EHENS HERMANN METAB OLIC PANEL urea nitrogen (BUN) 16 mg/dL 7-25 normal Not Available [address] [address] [place], [address], 02/10/2023 17:43:48 01/28/20 23 02/10/2023 COMPR EHENS HERMANN METAB OLIC PANEL creatinine 0.71 mg/dL 0.50-1 .03 normal Not Available [address] [address] [place], [address], 02/10/2023 17:43:48 01/28/20 23 02/10/2023 COMPR EHENS HERMANN METAB OLIC PANEL eGFR 99 mL/mi n/1.7 3m2 > or = 60 normal The eGFR is based on the CKD-E PI 2020 equat ion. To calcu late the new eGFR from a previ ous Creat inine or Cysta faizan C norah t, go to https ://tim michael.o jhoana/ilene dumont s/ kdoqi /gfr% 5Fcal culat or Not Available [address] [address] [place], [address], 02/10/2023 17:43:48 01/28/20 23 02/10/2023 COMPR EHENS HERMANN METAB OLIC PANEL BUN/creatini ne ratio NOT APPLIC ABLE (calc ) 6-22 Not Available [address], [address], 02/10/2023 17:43:48 01/28/20 23 02/10/2023 COMPR EHENS HERMANN METAB OLIC PANEL sodium 140 mmol/ L 135-14 6 normal Not Available [address], [address], 02/10/2023 17:43:48 01/28/20 23 02/10/2023 COMPR EHENS HERMANN METAB OLIC PANEL potassium 4.1 mmol/ L 3.5-5. 3 normal Not Available [address], [address], 02/10/2023 17:43:48 01/28/20 23 02/10/2023 COMPR EHENS HERMANN METAB OLIC PANEL chloride 105 mmol/ L 98-110 normal Not Available [address], [address], 02/10/2023 17:43:48 01/28/20 23 02/10/2023 COMPR EHENS HERMANN METAB OLIC PANEL carbon dioxide 28 mmol/ L 20-32 normal Not Available [address], [address], 02/10/2023 17:43:48 01/28/20 23 02/10/2023 COMPR EHENS HERMANN METAB OLIC PANEL calcium 9.2 mg/dL 8.6-10 .4 normal Not Available [address], [address], 02/10/2023 17:43:48 01/28/20 23 02/10/2023 COMPR EHENS HERMANN METAB OLIC PANEL protein, total 6.3 g/dL 6.1-8. 1 normal Not Available [facility] [address] [place], [address], 02/10/2023 17:43:48 01/28/20 23 02/10/2023 COMPR EHENS HERMANN METAB OLIC PANEL albumin 4.3 g/dL 3.6-5. 1 normal Not Available [address], [address], 02/10/2023 17:43:48 01/28/20 23 02/10/2023 COMPR EHENS HERMANN METAB OLIC PANEL globulin 2.0 g/dL_ (calc ) 1.9-3. 7 normal Not Available [address] [address] [place], [address], 02/10/2023 17:43:48 01/28/20 23 02/10/2023 COMPR EHENS HERMANN METAB OLIC PANEL albumin/glob ulin ratio 2.2 (calc ) 1.0-2. 5 normal Not Available [address] [address] [place], [address], 02/10/2023 17:43:48 01/28/20 23 02/10/2023 COMPR EHENS HERMANN METAB OLIC PANEL bilirubin, total 0.7 mg/dL 0.2-1. 2 normal Not Available [address], [address], 02/10/2023 17:43:48 01/28/20 23 02/10/2023 COMPR EHENS HERMANN METAB OLIC PANEL alkaline phosphatase 58 U/L 37-153 normal Not Available [facility] [employer] [address] [address] [place], [address], 02/10/2023 17:43:48 01/28/20 23 02/10/2023 COMPR EHENS HERMANN METAB OLIC PANEL AST 18 U/L 10-35 normal Not Available [address] [address] [place], [address], 02/10/2023 17:43:48 01/28/20 23 02/10/2023 COMPR EHENS HERMANN METAB OLIC PANEL ALT 25 U/L 6-29 normal Not Available [address] [place], [address], 02/10/2023 17:43:48 01/28/20 23 02/10/2023 LIVER KIDNE Y MICRO SOME (LKM- 1) AB (IGG) lkm-1 antibody (IgG) <=20.0 U <=20.0 Refer ence Range : <=20. 0 Negat hermann 20.1- 24.9 Equiv ocal >=25. 0 Posit hermann Anti- liver /kidn ey micro somal antib odies (Anti -LKM- 1) were previ ously teste d by indir ect immun ofluo resce nce (IF) using tracey t liver /kidn ey subst rate. Ident ifica tion of a speci fic antib geo targe t as cytoc hrome P450 IID6 has led to the curre nt recom binan t based VAISHNAVI . Antib odies to this cytoc hrome are prese nt in appro ximat ron 70% of patie nts with autoi mmune hepat itis type 2. This antib geo is also prese nt in appro ximat ron 10% of patie nts with hepat itis C infec tion. Not Available [address] [place], [address], 02/10/2023 17:43:49 01/28/20 23 02/10/2023 MITOC HONDR IA M2 ANTIB GEO (IGG) , EIA mitochondria M2 antibody (IgG), EIA <20.0 U Refer ence Range : NEGAT HERMANN: < OR = 20.0 EQUIV OCAL: 20.1- 24.9 POSIT HERMANN: > OR = 25.0 Not Available [facility] [address] [place], [address], 02/10/2023 17:43:50 01/28/20 23 02/10/2023 MISAEL SCREE N, IFA, W/REF L TITER AND PATTE RN MISAEL screen, ifa NEGATI VE negati ve normal MISAEL IFA is a first line scree n for detec ting the prese nce of up to appro ximat ron 150 autoa ntibo dies in vario us autoi mmune disea ses. A negat hermann MISAEL IFA resul t sugge sts an MISAEL-a ssoci ated autoi mmune disea se is not prese nt at this time, but is not defin itive . If there is high clini sanjana suspi cion for Sjogr en's syndr ome, testi ng for anti- SS-A/ Ro antib geo shoul d be consi dered . Anti- Viktoriya-1 antib geo shoul d be consi dered for clini kristie suspe cted infla mmato ry myopa da . AC-0: Negat hermann Inter natio nal Conse nsus on MISAEL Patte rns (http s://d oi.or g/10. 1515/ [facility]- 2017- 0052) For addit ional infor myra foy e refer to http: //[facility] pete wilson.Que stDia gnost ics.c om/fa q/FAQ 177 (This link is being provi ded for infor kendy nal/ educa madeleine l purpo ses only. ) Not Available [employer] [facility] [address] [place], [address], 02/10/2023 17:43:50 01/28/2002/10/2023 DHEA SULFA TE DHEA sulfate 99 mcg/d L 5-167 normal DHEA- S value s fall with advan cing age. For refer ence, the refer ence inter vals for 31-40 year old patie nts are: Male: 93-41 5 mcg/d L Femal e: 19-23 7 mcg/d L Not Available [employer] [facility] [address] [place], [address], 02/10/2023 17:43:51 01/28/2002/10/2023 INSUL IN insulin 12.1 uIU/m L normal Refer ence Range < or = 18.4 Risk: Optim al < or = 18.4 Moder ate NA High >18.4 Adult cardi ovasc ular event risk categ ory cut point s (opti mal, moder ate, high) are based on Insul in Refer ence Inter phil studi es perfo rmed at [facility] in 2021. Not Available [employer] [address] [place], [address], 02/10/2023 17:43:51 01/28/2002/10/2023 VITAM IN B12/F OLATE , SERUM PANEL vitamin B12 601 pg/mL 200-11 00 normal Not Available [employer] [address], [address], 02/10/2023 17:43:52 01/28/2002/10/2023 VITAM IN B12/F OLATE , SERUM PANEL folate, serum 17.6 NG/mL normal Refer ence Range Low: <3.4 Borde rline : 3.4-5 .4 Cara l: >5.4 Not Available [employer] [address] [address] [place], [address], 02/10/2023 17:43:52 01/28/2002/10/2023 TSH+F REE T4 TSH 2.85 mIU/L 0.40-4 .50 normal Not Available [employer] [address] [place], [address], 02/10/2023 17:43:52 01/28/2002/10/2023 TSH+F REE T4 T4, free 1.2 NG/dL 0.8-1. 8 normal Not Available [employer] [address], [address], 02/10/2023 17:43:52 01/28/2002/10/2023 HEMOG LOBIN A1C hemoglobin A1C 5.9 %_of_ total _HGB <5.7 high For someo ne witho ut known diabe macy, a hemog lobin A1c value betwe en 5.7% and 6.4% is consi stent with predi abete s and shoul d be confi rmed with a follo w-up test. For someo ne with known diabe macy, a value <7% indic ates that their diabe macy is well contr olled . A1c targe ts shoul d be indiv idual ized based on durat ion of diabe macy, age, comor bid condi tions , and other consi derat ions. This assay resul t is consi stent with an incre ased risk of diabe macy. Curre ntly, no conse nsus exist s regar ding use of hemog lobin A1c for diagn osis of diabe macy for child yuri. Not Available [facility] [employer] [address] [place], [address], 02/10/2023 17:43:53 08/04/2008/07/2023 COMPR EHENS HERMANN METAB OLIC PANEL glucose 104 mg/dL 65-99 high Fasti ng refer ence inter phil For someo ne witho ut known diabe macy, a gluco se value betwe en 100 and 125 mg/dL is consi stent with predi abete s and shoul d be confi rmed with a follo w-up test. Not Available [employer] [facility] [address] [address] [place], [address], 08/07/2023 15:48:07 08/04/2008/07/2023 COMPR EHENS HERMANN METAB OLIC PANEL urea nitrogen (BUN) 15 mg/dL 7-25 normal Not Available [employer] [facility] [address] [address] [place], [address], 08/07/2023 15:48:07 08/04/20 23 08/07/2023 COMPR EHENS HERMANN METAB OLIC PANEL creatinine 0.58 mg/dL 0.50-1 .03 normal Not Available [employer] [facility] [address] [address] [place], [address], 08/07/2023 15:48:07 08/04/20 23 08/07/2023 COMPR EHENS HERMANN METAB OLIC PANEL eGFR 105 mL/mi n/1.7 3m2 > or = 60 normal Not Available [address], [address], 08/07/2023 15:48:07 08/04/20 23 08/07/2023 COMPR EHENS HERMANN METAB OLIC PANEL BUN/creatini ne ratio SEE NOTE: (calc ) 6-22 Not Repor adelita: BUN and Creat inine are withi n refer ence range . Not Available [address], [address], 08/07/2023 15:48:07 08/04/20 23 08/07/2023 COMPR EHENS HERMANN METAB OLIC PANEL sodium 140 mmol/ L 135-14 6 normal Not Available [address], [address], 08/07/2023 15:48:07 08/04/20 23 08/07/2023 COMPR EHENS HERMANN METAB OLIC PANEL potassium 4.1 mmol/ L 3.5-5. 3 normal Not Available [address], [address], 08/07/2023 15:48:07 08/04/20 23 08/07/2023 COMPR EHENS HERMANN METAB OLIC PANEL chloride 106 mmol/ L 98-110 normal Not Available [address], [address], 08/07/2023 15:48:07 08/04/20 23 08/07/2023 COMPR EHENS HERMANN METAB OLIC PANEL carbon dioxide 29 mmol/ L 20-32 normal Not Available [address], [address], 08/07/2023 15:48:07 08/04/20 23 08/07/2023 COMPR EHENS HERMANN METAB OLIC PANEL calcium 9.2 mg/dL 8.6-10 .4 normal Not Available [address], [address], 08/07/2023 15:48:07 08/04/20 23 08/07/2023 COMPR EHENS HERMANN METAB OLIC PANEL protein, total 6.5 g/dL 6.1-8. 1 normal Not Available [address], [address], 08/07/2023 15:48:07 08/04/20 23 08/07/2023 COMPR EHENS HERMANN METAB OLIC PANEL albumin 4.4 g/dL 3.6-5. 1 normal Not Available [address], [address], 08/07/2023 15:48:07 08/04/20 23 08/07/2023 COMPR EHENS HERMANN METAB OLIC PANEL globulin 2.1 g/dL_ (calc ) 1.9-3. 7 normal Not Available [address], [address], 08/07/2023 15:48:07 08/04/20 23 08/07/2023 COMPR EHENS HERMANN METAB OLIC PANEL albumin/glob ulin ratio 2.1 (calc ) 1.0-2. 5 normal Not Available [address], [address], 08/07/2023 15:48:07 08/04/20 23 08/07/2023 COMPR EHENS HERMANN METAB OLIC PANEL bilirubin, total 1.0 mg/dL 0.2-1. 2 normal Not Available [address], [address], 08/07/2023 15:48:07 08/04/20 23 08/07/2023 COMPR EHENS HERMANN METAB OLIC PANEL alkaline phosphatase 63 U/L 37-153 normal Not Available [address], [place], [address], 08/07/2023 15:48:07 08/04/20 23 08/07/2023 COMPR EHENS HERMANN METAB OLIC PANEL AST 16 U/L 10-35 normal Not Available [address] [address] [place], [address], 08/07/2023 15:48:07 08/04/20 23 08/07/2023 COMPR EHENS HERMANN METAB OLIC PANEL ALT 22 U/L 6-29 normal Not Available [facility] [address], [address], 08/07/2023 15:48:07 08/04/20 23 08/07/2023 THYRO ID PEROX IDASE ANTIB ODIES thyroid peroxidase antibodies <1 IU/mL <9 Not Available [address], [address], 08/07/2023 15:48:09 08/04/20 23 08/07/2023 INSUL IN insulin 12.6 uIU/m L normal Refer ence Range < or = 18.4 Risk: Optim al < or = 18.4 Moder ate NA High >18.4 Adult cardi ovasc ular event risk categ ory cut point s (opti mal, moder ate, high) are based on Insul in Refer ence Inter phil studi es perfo [facility]med at [facility] in 2021. Not Available [employer] [address], [address], 08/07/2023 15:48:10 08/04/20 23 08/07/2023 VITAM IN B12/F OLATE , SERUM PANEL vitamin B12 1366 pg/mL 200-11 00 high Not Available [employer] [address], [address], 08/07/2023 15:48:11 08/04/20 23 08/07/2023 VITAM IN B12/F OLATE , SERUM PANEL folate, serum 18.3 NG/mL normal Refer ence Range Low: <3.4 Borde rline : 3.4-5 .4 Cara l: >5.4 Not Available [facility] [address], [address], 08/07/2023 15:48:11 08/04/20 23 08/07/2023 T3, FREE T3, free 3.6 pg/mL 2.3-4. 2 normal Not Available [facility] [address], [address], 08/07/2023 15:48:12 08/04/2008/07/2023 TSH+F REE T4 TSH 2.99 mIU/L 0.40-4 .50 normal Not Available [address], [address], 08/07/2023 15:48:13 08/04/20 23 08/07/2023 TSH+F REE T4 T4, free 1.0 NG/dL 0.8-1. 8 normal Not Available [address], [address], 08/07/2023 15:48:13 08/04/2008/07/2023 HEMOG LOBIN A1C hemoglobin A1C 5.6 %_of_ total _HGB <5.7 normal For the purpo se of miriam blevins for the prese nce of diabe macy: <5.7% Consi stent with the absen ce of diabe macy 5.7-6 .4% Consi stent with incre ased risk for diabe macy (pred iabet es) > or =6.5% Consi stent with diabe macy This assay resul t is consi stent with a decre ased risk of diabe macy. Curre ntly, no conse nsus exist s neelam tom use of hemog lobin A1c for diagn osis of diabe macy in child yuri. Accor ding to Ameri can Diabe macy Assoc iatio n (ADA) guide lines , hemog lobin A1c <7.0% repre sents optim al contr ol in non-p regna nt diabe tic patie nts. Diffe rent metri cs may apply to speci fic patie nt popul ation s. Stand ards of Medic al Care in Diabe macy(A DA). Not Available [facility] [address] [address], [place], [address], 08/07/2023 15:48:14 07/02/20 21 07/01/2021 bone densi ty No observ ation record ed. [id number] [facility] (Imaging) [address], [place], [address], 01/04/2023 16:10:40 08/20/20 21 07/01/2021 bone densi ty No observ ation record ed. [id number] [facility] [address], [place], [address], 01/04/2023 16:10:40 10/13/20 22 10/13/2022 US, liver No observ ation record ed. [id number] [facility] [address], [place], [address], 01/04/2023 16:10:40 Result Notes None recorded. Problems Name Problem SNOMED Code Status Onset Date Resolution Date Notes Provider Name and Address Organization Details Recorded Time Prediabetes 885348923 Active 2022 MD Yen [address], [place], [address], [facility] [employer] 3 11:57:23 Jose Miguel thyroiditis 03471546 Active 2022 MD Yen [address], [place], [address], [facility] [employer] 3 11:57:32 Vitamin B12 deficiency (non anemic) 92267014 Active 2022 MD [address], [place], [address], [facility] [employer] [facility] 11:57:41 Sleep apnea 36280000 Active 2022 Orquidea Barillas MD [address], [place], [address], [facility] [employer] [facility] 12:03:04 Problem Notes None recorded. Procedures Surgical History None recorded. Imaging Results Imaging Date Name Status LastModified by Organiz ation Details LastModified Time 07/01/2021 bone density completed [id number] [facility] (Imaging) [address], [place], [address], 01/04/2023 16:10:40 07/01/2021 bone density completed [id number] 026 [facility] [address], [place], [address], 01/04/2023 16:10:40 10/13/2022 US, liver completed [id number] 026 [facility] [address], [place], [address], 01/04/2023 16:10:40 Procedure Notes None recorded. Medical Equipment None Reported. Allergies No known drug allergies Medications Name Sig Start Date Stop Date Status Note LastModified by Organization Details LastModified Time cyclobenzap rine 10 mg tablet 05/18 completed Not Available Not Available Not Available metformin 500 mg tablet TAKE 1 TABLET BY MOUTH DAILY WITH DINNER 01/14 completed Not Available Not Available Not Available hydrocodone 5 mg-acetamin ophen 325 mg tablet 06/22 completed Not Available Not Available Not Available permethrin 5 % topical cream 05/18 completed Not Available Not Available Not Available phentermine 15 mg capsule Take 1 capsule every day by oral route. 07/18 completed Not Available Not Available Not Available amoxicillin 500 mg tablet TAKE 4 TABLETS BY MOUTH 1 HOUR PRIOR TO APPOINTME NT 08/07 completed Not Available Not Available Not Available dexamethaso ne 1 mg tablet Take 1 tablet as needed by oral route at bedtime for 1 day. active Not Available Not Available No t Available cyanocobala min (vit B-12) 1,000 mcg/mL injection solution INJECT 1 ML SUBCUTANE OUSLY EVERY WEEK IN THE MORNING active Not Available Not Available No t Available Trivora (28) 50-30 (6)/75-40(5 )/125-30(10 ) tablet 05/18 completed Not Available Not Available Not Available BD Ultra-Fine Sharee Pen Needle 32 gauge x 5/32 EVERY DAY active Not Available Not Available No t Available Xarelto 20 mg tablet TAKE ONE TABLET BY MOUTH ONCE DAILY, MUST ADMINISTE R WITH EVENING MEAL active Not Available Not Available No t Available BD Insulin Syringe Ultra-Fine 1 mL 31 gauge x 5/16 INJECT B12 SUBCUTANE OUSLY ONCE WEEKLY X 90 DAYS active Not Available Not Available No t Available Jublia 10 % topical solution with applicator 07/18 completed Not Available Not Available Not Available Saxenda 3 mg/0.5 mL (18 mg/3 mL) subcutaneou s pen injector INJECT 3MG SUBCUTANE OUSLY DAILY 02/10 completed Not Available Not Available Not Available Rybelsus 7 mg tablet Take 1 tablet every day by oral route in the morning for 90 days. active Not Available Not Available No t Available Vitals Date Recorded Body mass index (BMI) Body height Oxygen saturation Oxygen saturation in Arterial blood by Pulse oximetry Heart rate Respiratory rate Body temperature Body weight Systolic blood pressure Diastolic blood pressure Provider Name and Address Organization Details Last Updated DateTime 1 40.3 kg/m2 170.18 cm 95 % 95 % 84 /min 18 /min 98.4 [degF] 185645. 24 g 110 mm[Hg] 72 mm[Hg] Not Available [facility] 3 16:10:08 Date Recorded Body mass index (BMI) Body height Oxygen saturation Oxygen saturation in Arterial blood by Pulse oximetry Heart rate Body temperature Body weight Systolic blood pressure Diastolic blood pressure Provider Name and Address Organization Details Last Updated DateTime 1 41.3 kg/m2 170.18 cm 94 % 94 % 82 /min 98.4 [degF] 794126. 39 g 100 mm[Hg] 70 mm[Hg] Not Available [facility] 3 16:10:08 Date Recorded Body mass index (BMI) Body height Oxygen saturation Oxygen saturation in Arterial blood by Pulse oximetry Heart rate Body temperature Body weight Systolic blood pressure Diastolic blood pressure Provider Name and Address Organization Details Last Updated DateTime 2 38.3 kg/m2 170.18 cm 97 % 97 % 72 /min 97.8 [degF] 027975. 33 g 110 mm[Hg] 80 mm[Hg] Not Available [facility] 3 16:10:08 Date Recorded Body mass index (BMI) Body height Oxygen saturation Oxygen saturation in Arterial blood by Pulse oximetry Heart rate Body temperature Body weight Systolic blood pressure Diastolic blood pressure Provider Name and Address Organization Details Last Updated DateTime 2 39.6 kg/m2 170.18 cm 99 % 99 % 67 /min 97.8 [degF] 028056. 15 g 110 mm[Hg] 75 mm[Hg] Not Available [facility] 3 16:10:08 Date Recorded Body height Body mass index (BMI) Body weight Heart rate Body temperature Systolic blood pressure Diastolic blood pressure Provider Name and Address Organization Details Last Updated DateTime 3 170.18 cm 39.3 kg/m2 082518. 68 g 63 /min 97.2 [degF] 120 mm[Hg] 84 mm[Hg] MARNIE Womack [place] [facility] [employer] 3 11:32:22 Social History Question Answer Notes LastModified by Organizat ion Details LastModified Time Tobacco Smoking Status Never Smoker Not Available [facility] 01/04/2023 16:09:54 What Is Your Level Of Alcohol Consumption? Moderate [id number] Information not available 01/04/2023 What Is Your Level Of Caffeine Consumption? Occasional [id number] Information not available 01/04/2023 How Much Tobacco Do You Chew? None [id number] Information not available 01/04/2023 In The 14 Days Before Symptom Onset, Have You Had Close Contact With A Laboratory-confir med COVID-19 While That Case Was Ill? No [id number] Information not available 01/04/2023 In The 14 Days Before Symptom Onset, Have You Had Close Contact With A Person Who Is Under Investigation For COVID-19 While That Person Was Ill? No [id number] Information not available 01/04/2023 Which Illicit Or Recreational Drugs Have You Used? None [id number] Information not available 01/04/2023 Do You Or Have You Ever Used E-cigarettes Or Vape? Never Used Electronic Cigarettes [id number] Information not available 01/04/2023 What Is Your Relationship Status? [id number] Information not available 01/04/2023 Do You Or Have You Ever Used Smokeless Tobacco? Never Used Smokeless Tobacco MIGRATION.[id number] Information not available 01/04/2023 Have You Recently Traveled Abroad? No [id number] Information not available 01/04/2023 Sex: Female Functional Status None recorded. Mental Status None recorded. Family History Relationship Description Onset Age of this Age Resolved Age Notes LastModified by Organization Details LastModified Time Mother Parkinsonism MIGRATION.0 30 [id number] Not available 01/04/2023 16:09:57 Father Hypercholest erolemia [id number].606 [id number] Not available 01/04/2023 16:09:57 Father Dementia [id number].855 [id number] Not available 01/04/2023 16:09:57 Paternal Grandfather Diabetes mellitus MIGRATION.005 [id number] Not available 01/04/2023 16:09:57 Maternal Grandmother Diabetes mellitus [id number].522 [id number] Not available 01/04/2023 16:09:57 Medical History Condition Response EYE PROBLEMS Y USE OF BLOOD THINNERS Y BLOOD CLOTS Y Gynecological HistoryNo gynecological history recorded. Obstetrics History GPAL:G 0 P 0 0 0 0 Past Encounters Encounter ID Performer Location Encounter Start Date Encounter Closed Date Diagnosis/Indication Diagnosis SNOMED-CT Code Diagnosis ICD10 Code Diagnosis Note [id number] [facility] [address] [place] [address] 05/18/2021 00:00:00 05/18/2021 16:08:17 [id number] [facility] [address] [place] [address] 06/22/2021 00:00:00 06/22/2021 21:28:08 [id number] [facility] [address] [place] [address] 01/14/2022 00:00:00 01/14/2022 12:33:28 [id number] [facility] [address] [place] [address] 07/18/2022 00:00:00 07/18/2022 15:30:16 [id number] Orquidea Barillas MD [facility] [address] [place] [address] 02/10/2023 11:15:37 02/10/2023 12:09:20 Prediabetes 807251976 R73.03 a1c of 5.9%- patient wishes to manage naturally and without pharmacoth erapy at this time. Discussed carb counting and how to read food labels. Recommende d patient to utilize the diabetesfo [employer] from the ADA website to help with food preparatio n as this presents ideal carb content per meal so this will make carb counting much easier for patient. Recommende d she incorporat e natural insulin spinner hand s such as pears, apples, cinnamon, damon and sweet potatoes to help mobilize her endogenous insulin. Recommende d up to 150 minutes of moderate level activity/e xercise weekly. Jose Miguel thyroiditis 21 857564 E06.3 TSH and FT4 in range- recommende d a thyroid supplement similiar to actalin by Dr. Popeye Phan that contains, iodine, magnesium, manganese, carnitine and other elements to help maintain endogenous thyroid function and help to reduce swelling to take in meantime to help reduce time frame to burn out and to help with fatigue, hair thinning etc. Vitamin B1 2 deficiency (non anemic) 05029188 E53.8 Trial on B12 injections as she is not having any improvemen t on oral supplement ation. Start at 1000 mcg SQ once weekly x 4 weeks then every other week thereafter . monitor levels. Sleep apnea [id number] G47 .30 send for sleep study as she does have days of chronic fatigue and does notice gasping for breath in middle of night-she lives alone so she doesn't have anyone around to monitor her symptoms closely. Spent up to 26 minutes preparing to see the patient (eg, review of tests), obtaining and/or reviewing separately obtained history, performing a medically appropriat e examinatio n and evaluation , counseling and educating the patient, ordering medication s, tests, along with documentin g clinical informatio n in the electronic health record, bobbi goddard interpreti ng results and communicat ing results to the patient. RTC in 6 months. Patient was provided a handwritte n lab order which contains our fax number. If she chooses to go outside of the [facility] system to obtain labwork she was advised to provide our fax number and my informatio n to the lab she will be obtaining labwork from in order to have her labs properly forwarded over for me to review so there is no loss of follow up due to use of outside network. She was also advised to contact our clinic informing us that she has completed her labwork so we are aware we will need to reach out to the appropriat e laboratory to request her results be forwarded to us so I might have the ability to review and make further medical decision making in her case. She voiced understand ing. Health Concerns Section Related Observation LastModified by Organization Detai ls LastModified Time None Recorded Concern Status LastModified by Organization Details LastModified Time None Recorded Advance Directives Directive None Recorded Payers Encounter Date Sequence Insurance Name Policy Number Policy Wilson Covered Member ID Wilson Member ID Guarantor Name 02/10/2023 1 [employer] - OPEN ACCESS Roselyn Miramontes George [id number] Roselyn Miramontes George Notes Date Note Type Note Provider Name and Address Organization Details Recorded Time 02/10/2023 text/html 57 yo female com es in for follow up in management of hashimotos thyroiditis, prediabetes (A1C of 5.9%) and hair loss/thinning. last seen in Jul at that time we continued saxenda with potential to titrate to 3 mg once daily She stopped taking the saxenda about one month ago- she ended up stopping her phentermine She had vein surgery on January 17 and ended up coming off the phentermine. She had to take it easy and couldn't exercise. She went to the [facility] vein center and had laser surgery to her left lower leg. She wasn't able to get her sleep study; she is by herself- she wakes up once a night to go to the bathroom. She wakes up fatigued some days and notices she gasps for breath most nights. She doesn't wake up too exhausted in the morning. She takes a gummy regularly She didn't continue on the metformin due to concerns of side effects. liver u/s from 10/13/22hepatic cystsnegative gallbladder labs from 01/27/23:glucose 97 mg/dLhepatitis nonreactiveLKM/sydnie chondrial negANA nega1c of 5.9%TSH 2.85 uIU/mlFT4 of 1.2 ng/dLtestosterone 29 ng/dLiron sat 29%Cr normalLFT normal Orquidea Barillas MD [address] [facility], [facility] [address], [place], [address], [place] [facility] 02/10/2023 13:57:09 OBGyn Episode No OBEpisode recorded.
--- OUTSIDE RECORDS SUMMARY | 2024-11-29 02:24 | XMS_ITS | Clinical Summary ---
Author Organization [facility] Address [address] [place] [address]. [place], [place] [address] [place] [id number] Care Team Providers Care Paper Twister Tender Name Role Phone Machelle Coker MD Primary Care Provider [phone] Social History Tobacco Use Types Packs/Day Years Used Date Smoking Tobacco: Never Assessed Comments Unknown Sex and Gender Information Value Date Recorded Sex Assigned at Not on file Legal Sex Female 11:29 AM CDT Gender Identity Not on file Sexual Orientation Not on file Plan of Treatment Health Maintenance Due Date Last Done Comments Cervical Cancer Screening Pap Smear (Age 30 to 64) Every 3 Years 1965 Colorectal Cancer Screening Colonoscopy (10 Years) 1965 Annual Physical 1968 Hepatitis C 1983 DTaP, Tdap and Td Vaccines (1 - Tdap) 1984 Cervical Cancer Screening Pap with HPV Testing (Age 30 to 64) Every 5 Years 1995 Cervical Cancer Screening with HPV 1995 Mammogram Screening 2005 Zoster Vaccines (1 of 2) 2015 COVID-19 Vaccine ( season) 2024 07/05/2021, 06/14/2021 Influenza Adult (#1) 2024 08/19/2021, 08/01/2020, 07/27/2020, Additional history exists Meningococcal Vaccine Aged Out No cale moy eligible based on patient's age to complete this topic Pneumococcal Vaccine: Pediatrics (0 to 5 Years) and At-Risk Patients (6 to 64 Years) Aged Out No longer eligible based on patient's age to complete this topic RSV Immunizations Under 20 Months Aged Out No longer eligible based on patient's age to complete this topic Insurance [employer] OPEN ACCESS [facility] Care Teams Paper Twister Tender Relationship Specialty Start Date End Date Machelle Coker MD [address] [place] [address] PCP - General FAMILY PRACTICE 08/04/22
--- OUTSIDE RECORDS SUMMARY | 2024-11-29 02:24 | XMS_ITS | Data Portability ---
Author Organization [employer] , [facility]_Baldo Address [address] [place] [address] Assessment No assessment recorded. Plan of Treatment Reminders Order Date Submit Date Provider Last Modified By Organization Details Last Modified Time Details Appointments None recorded. Lab noninvasiv e colorectal cancer DNA + occult blood screening, QL, stool 2021 022 [facility] (Cologuard Orders Only), [address], [address], [place], [address], 2 16:52:40 pap, LB 2021 022 [place] [facility], [address] [place], [address], 2 10:33:08 HPV E6+E7 mRNA, qualitativ e PCR, cervix 2022 023 CLAYTON Aguilita Richie, [address] [place] [address], [address], 3 14:35:45 pap, LB 2022 023 [facility], [address] [place], [address], 3 10:25:45 pap, LB 2023 024 Cogo [facility], [address] [place], [address], 4 16:39:41 HPV E6+E7 mRNA, qualitativ e PCR, cervix 2023 024 CLAYTON Aguilita Richie, [address] [place], [address], 4 09:52:15 Referral None recorded. Procedures None recorded. Surgeries None recorded. Imaging MAMMO, screening, digital, bilateral 2021 022 [facility] (Imaging), [facility] [address] [facility], [place], [address], 2 10:33:27 US, pelvis, transabdom inal + transvagin al 2021 022 CLAYTON Not available 2 12:02:12 MAMMO, screening, digital, bilateral [address] (Imaging), [address] [place] [address] [address] [facility], [place], [address], 3 16:37:51 US, pelvis 2022 023 [place] [address] Not available 3 16:37:50 MAMMO, screening, digital, bilateral 2023 024 [facility] (Imaging), [facility] [address] [place] [address], [phone], 4 13:06:37 Medication Orders None recorded. Patient TargetsNo targets recorded. Patient Instructions Encounter Date Encounter Id Patient Instructions Last Modified By Organization Details Last Modified Time 08/04/2022 [id number] A healthy lifestyle: care instructions Not available 08/04/2022 14:35:04 substance use disorder: care instructions Not available 08/04/2022 14:35:03 calcium and vitamin D combination Not available 08/04/2022 14:35:03 depression (wome n only) Not available 08/04/2022 14:35:03 eating healthy foods: care instructions Not available 08/04/2022 14:35:04 exercise program : getting started Not available 08/04/2022 14:35:03 08/10/2023 [id number] A healthy lifestyle: care instructions Not available 08/10/2023 14:22:59 substance use disorder: care instructions Not available 08/10/2023 14:22:58 calcium and vitamin D combination Not available 08/10/2023 14:22:58 depression (wome n only) Not available 08/10/2023 14:22:58 eating healthy foods: care instructions Not available 08/10/2023 14:22:59 exercise program : getting started Not available 08/10/2023 14:22:58 08/15/2024 [id number] body mass index: care instructions Not available 08/15/2024 13:59:48 mammogram: about this test Not available 08/15/2024 13:59:48 Reason for Referral None Reported. Results Created Date Observation Date Name Description Value Unit Range Abnormal Flag Note LastModifiedBy Organization Detail LastModifiedTime 08/05/2008/10/2022 THINP REP TIS PAP clinical information: normal None given Not Available [facility] [address], [address], 08/10/2022 20:02:44 08/05/20 22 08/10/2022 THINP REP TIS PAP LMP: normal NONE GIVEN Not Available [facility] [address], [address], 08/10/2022 20:02:44 08/05/20 22 08/10/2022 THINP REP TIS PAP prev. Pap: normal NONE GIVEN Not Available [facility] [address], [address], 08/10/2022 20:02:44 08/05/20 22 08/10/2022 THINP REP TIS PAP prev. BX: normal NONE GIVEN Not Available [facility] [address], [address], 08/10/2022 20:02:44 08/05/20 22 08/10/2022 THINP REP TIS PAP source: normal Cervi x, Endoc ervix Not Available [address], [address], 08/10/2022 20:02:44 08/05/20 22 08/10/2022 THINP REP TIS PAP statement of adequacy: normal Satis facto ry for evalu ation . Endoc ervic al/tr ansfo rmati on zone compo nent prese nt. Not Available [address] [place], [address], 08/10/2022 20:02:44 08/05/20 22 08/10/2022 THINP REP TIS PAP interpretati on/result: normal Negat janeth for intra epith elial lesio n or malig rj . Not Available [place] [address] [place], [address], 08/10/2022 20:02:44 08/05/20 22 08/10/2022 THINP REP TIS PAP comment: normal This Pap test has been evalu ated with compu ter kobe adelita techn ology . Not Available [place] [address] [place], [address], 08/10/2022 20:02:44 08/05/20 22 08/10/2022 THINP REP TIS PAP cytotechnolo gist: normal KMS, CT( CP) CT Scree gen locat ion: [place] [address] [place] [address] Not Available [address], [address], 08/10/2022 20:02:44 08/05/20 22 08/10/2022 THINP REP TIS PAP comment EXPLA NATOR Y NOTE: The Pap is a scree gen test for cervi sanjana cance r. It is not a diagn ostic test and is subje ct to false negat janeth and false posit janeth resul ts. It is most relia ble when a satis facto ry sampl e, regul norbert obtai fahad, is submi tted with relev ant clini sanjana findi ngs and histo ry, and when the Pap resul t is evalu ated along with histo becca and curre nt clini sanjana infor matio n. Not Available [address], [address], 08/10/2022 20:02:44 08/10/20 23 08/15/2023 THINP REP TIS PAP clinical information: normal None given Not Available [address], [address], 08/15/2023 10:25:45 08/10/20 23 08/15/2023 THINP REP TIS PAP LMP: normal NONE GIVEN Not Available [address], [address], 08/15/2023 10:25:45 08/10/20 23 08/15/2023 THINP REP TIS PAP prev. Pap: normal Not Available [address], [address], 08/15/2023 10:25:45 08/10/20 23 08/15/2023 THINP REP TIS PAP prev. BX: normal NONE GIVEN Not Available [address], [address], 08/15/2023 10:25:45 08/10/20 23 08/15/2023 THINP REP TIS PAP source: normal Cervi x Not Available [address], [address], 08/15/2023 10:25:45 08/10/20 23 08/15/2023 THINP REP TIS PAP statement of adequacy: normal Satis facto ry for evalu ation . Endoc ervic al/tr ansfo rmati on zone compo nent prese nt. Not Available [address] [address] [place], [address], 08/15/2023 10:25:45 08/10/2008/15/2023 THINP REP TIS PAP interpretati on/result: normal Cytol ogy Resul ts: Negat janeth for intra epith elial lesio n or malig rj . Not Available [address] [address] [place], [address], 08/15/2023 10:25:45 08/10/2008/15/2023 THINP REP TIS PAP comment: normal This Pap test has been evalu ated with compu ter kobe adelita techn ology . Not Available [place] [address] [address] [place], [address], 08/15/2023 10:25:45 08/10/2008/15/2023 THINP REP TIS PAP cytotechnolo gist: normal AMW, CT( CP) CT scree gen locat ion: [place] [address] [place] [address] Not Available [place] [address] [place], [address], 08/15/2023 10:25:45 08/10/2008/15/2023 THINP REP TIS PAP comment EXPLA NATOR Y NOTE: The Pap is a scree gen test for cervi sanjana cance r. It is not a diagn ostic test and is subje ct to false negat janeth and false posit janeth resul ts. It is most relia ble when a satis facto ry sampl e, regul norbert obtai fahad, is submi tted with relev ant clini sanjana findi ngs and histo ry, and when the Pap resul t is evalu ated along with histo becca and curre nt clini sanjana infor matio n. Not Available [place] [address] [address] [place], [address], 08/15/2023 10:25:45 08/10/20 23 08/17/2023 HPV GENOT YPE HPV 16 Negati ve negati ve normal Not Available [address], [address], 08/17/2023 14:35:45 08/10/20 23 08/17/2023 HPV GENOT YPE HPV 18/45 Negati ve negati ve normal Assay can diffe renti ate HPV 16 from HPV 18 and/o r HPV 45. But canno t diffe renti ate betwe en 18 and 45. Not Available [address], [address], 08/17/2023 14:35:45 08/10/20 23 08/11/2023 HPV HIGH RISK HPV high risk POSITI VE negati ve abnormal The HPV High Risk assay is inten ded for use as co-te sting with cytol ogy and not as a subst itute for regul ar cervi sanjana cytol ogy scree gen. This assay is not inten ded for use as a scree gen devic e for women under age 30 with jeff l cervi sanjana cytol ogy. Not Available [address], [address], 08/17/2023 14:35:46 08/15/20 24 08/16/2024 HPV HIGH RISK HPV high risk Negati ve negati ve normal The HPV High Risk assay is inten ded for use as co-te sting with cytol ogy and not as a subst itute for regul ar cervi sanjana cytol ogy scree gen. This assay is not inten ded for use as a scree gen devic e for women under age 30 with jeff l cervi sanjana cytol ogy. Not Available [address], [address], 08/17/2024 09:52:15 08/15/20 24 08/21/2024 THINP REP TIS PAP clinical information: normal None given Not Available [facility] [place], [address], 08/21/2024 16:39:41 08/15/2008/21/2024 THINP REP TIS PAP LMP: normal NONE GIVEN Not Available [address], [address], 08/21/2024 16:39:41 08/15/2008/21/2024 THINP REP TIS PAP prev. Pap: normal NONE GIVEN Not Available [address], [address], 08/21/2024 16:39:41 08/15/2008/21/2024 THINP REP TIS PAP prev. BX: normal NONE GIVEN Not Available [address], [address], 08/21/2024 16:39:41 08/15/2008/21/2024 THINP REP TIS PAP source: normal Cervi x Not Available [address], [address], 08/21/2024 16:39:41 08/15/2008/21/2024 THINP REP TIS PAP statement of adequacy: normal Satis facto ry for evalu ation . Endoc ervic al/tr ansfo rmati on zone compo nent absen t. Not Available [address], [address], 08/21/2024 16:39:41 08/15/2008/21/2024 THINP REP TIS PAP interpretati on/result: normal Cytol ogy Resul ts: Negat janeth for intra epith elial lesio n or malcullen rj . Not Available [address], [address], 08/21/2024 16:39:41 08/15/2008/21/2024 THINP REP TIS PAP comment: normal This Pap test has been evalu ated with compu rubi techn ology . Not Available [place] [address] [place], [address], 08/21/2024 16:39:41 08/15/20 24 08/21/2024 THINP REP TIS PAP cytotechnolo gist: normal MARILYN, CT( CP) CT scree gen locat ion: [place] [address] [place] [address] Not Available [employer] [place] [address] [address], [place], [address], 08/21/2024 16:39:41 08/15/20 24 08/21/2024 THINP REP TIS PAP comment EXPLA NATOR Y NOTE: The Pap is a scree gne test for cervi sanjana cance r. It is not a diagn ostic test and is subje ct to false negat janeth and false posit janeth resul ts. It is most relia ble when a satis facto ry sampl e, regul norbert obtai fahad, is submi tted with relev ant clini sanjana findi ngs and histo ry, and when the Pap resul t is evalu ated along with histo becca and curre nt clini sanjana infor matio n. Not Available [address], [place], [address], 08/21/2024 16:39:41 09/08/20 22 09/06/2022 US, pelvi s, trans abdom inal + trans vagin al No observ ation record ed. [facility] [address], [place], [address], 09/08/2022 13:09:03 11/09/19 23 10/18/2022 MRI, pelvi s, w/o contr ast No observ ation record ed. [facility] [address], [place], [address], 11/18/2022 11:03:54 10/0508/10/2023 US, pelvi s, trans abdom inal + trans vagin al No observ ation record ed. [facility] [address], [place], [address], 08/10/2023 15:13:48 Result Notes None recorded. Problems Name Problem SNOMED Code Status Onset Date Resolution Date Notes Provider Name and Address Organization Details Recorded Time Breast neoplasm screenin g status 596783598 Completed 201709/17/2018 Encounte r for other screenin g for malignan t neoplasm of breast; Progress : Stable Added By: Gabi Cleary Add to Current Problems : NO ProblemS tatus: Resolve Not Available [facility] 2 14:44:22 Abnormal findings on diagnost ic imaging of breast [id number] Completed 201707/31/2020 Other (abnorma l) findings on radiolog ical examinat ion of breast; Location : None Progress : Stable Added By: Cherrie Hensley Add to Current Problems : NO ProblemS tatus: Current Other (abnorma l) findings on radiolog ical examinat ion of breast; Progress : Stable Added By: Cherrie Hensley Add to Current Problems : NO ProblemS tatus: Resolve Not Available [facility] 2 14:44:22 Breast neoplasm screenin g NOS Completed 201709/17/2018 Screenin g for breast cancer, unspecif ied; Location : None Severity : Moderate Progress : Stable Added By: Gabi Cleary Add to Current Problems : YES ProblemS tatus: Resolve Not Available [facility] 1 06:00:39 Uterine leiomyom a 68248507 Active 2020 Naomy Reyez MD [address] [place] [address], [phone] , [employer] [facility] 2 11:23:48 Irritabl e bowel syndrome 30703552 Active 2021 Naomy Reyez MD [address] [place] [address], [phone] , [employer] [facility] 2 11:24:00 Hypothyr oidism 94212189 Active 2021 Naomy Reyez MD [address] [place] [address], [phone] , [employer] [facility] [employer] [facility] 2 11:24:07 Deep venous thrombos is 121869131 Active 2021 h/o LLE DVT Naomy Reyez MD [address] [place] [address], [phone] , [employer] [facility] 2 11:24:30 Human papillom a virus infectio n 929067504 Active 2021 2016 - positive Naomy Reyez MD [address] [place] [address], [phone] , [facility] [employer] [facility] 2 11:25:01 Obesity 065683481 Active 2021 Naomy Reyez MD [address] [place] [address], [phone] , [employer] [facility] 2 11:25:50 Problem Notes None recorded. Procedures Surgical History Date Name Laterality Status Provider Name and Address Organization Details Recorded Time 10/20/20 23 Most Recent Mammogram completed [facility] [employer] [facility] 08/15/2024 13:11:28 08/10/20 23 Date of Last Pap Smear completed Naomy Reyez MD [address] [place] [address], [phone], [employer] [facility] 08/16/2023 09:49:04 07/03/20 23 Date of Last Colonoscopy completed Naomy Reyez MD [address] [place] [address], [phone], [employer] [facility] 08/10/2023 08:22:46 11/06/19 21 Most Recent Bone Density completed Memo Bird [employer] [facility] 08/15/2024 13:11:28 appendectomy completed [facility] [employer] [employer] [facility] 07/29/2022 14:43:51 section completed [facility] [employer] [facility] 07/29/2022 14:44:03 operation on lacrimal system completed [facility] [employer] [facility] 08/15/2024 13:16:05 [facility] [employer] 08/15/2024 13:16:18 Imaging Results Imaging Date Name Status LastModified by Organization Details LastModified Time 09/06/2022 US, pelvis, transabdominal + transvaginal completed [facility] [address], [place], [address], 09/08/2022 13:09:03 10/18/2022 MRI, pelvis, w/o contrast completed [facility] [address], [place], [address], 11/18/2022 11:03:54 08/10/2023 US, pelvis, transabdominal + transvaginal completed [facility] [address], [place], [address], 08/10/2023 15:13:48 Procedure Notes None recorded. Medical Equipment None Reported. Allergies No known drug allergies Medications Name Sig Start Date Stop Date Status Note LastModified by Organization Details LastModified Time metformin 500 mg tablet TAKE 1 TABLET BY MOUTH DAILY WITH DINNER 08/01 completed Not Available Not Available Not Available prednison e 10 mg tablet TAKE 1 TABLET BY MOUTH TWICE A DAY 08/15 completed Not Available Not Available Not Available tramadol 50 mg tablet TAKE 1 TABLET BY MOUTH EVERY 6 HOURS NEEDED FOR PAIN 08/15 completed Not Available Not Available Not Available amoxicill in 500 mg tablet TAKE 4 TABLETS BY MOUTH 1 HOUR PRIOR TO APPOINTM ENT 08/10 completed Not Available Not Available Not Available cyanocoba brandon (vit B-12) 1,000 mcg/mL injection solution INJECT 1 ML SUBCUTAN EOUSLY EVERY WEEK IN THE MORNING active Not Available Not Available No t Available Vitamin D3 25 mcg (1,000 unit) capsule Take 1 capsule( s) by mouth daily 08/10 completed Vitamin D3 25 mcg (1,000 unit) oral capsule RxNorm: 094211 Allow Substitu tion: True Refill Denied: No Refill DateOccu rred: 04/13/20 18 Edited by: wendyhei wade(Sarabjit Carrizalesl ) on 07/31/20 Stopped by: wendyhei wade(Sarabjit Carrizalesl ) on Not Available Not Available Not Available Cinnamon 500 mg capsule Take by oral route. active Not Available Not Available No t Available lysine active Not Available Not Availa ble Not Available magnesium active Not Available Not Joslyn ilable Not Available melatonin active Not Available Not Joslyn ilable Not Available Vitamin C active Not Available Not Joslyn ilable Not Available vitamin A active Not Available Not Joslyn ilable Not Available L-Glutami ne active Not Available Not Available Not Available coenzyme Q10 08/10 completed Coenzyme Q10 Allow Substitu tion: True Refill Denied: No Refill DateOccu rred: 04/13/20 Edited by: wendyhei wade(Diamond Carrizales ) on 07/31/20 Stopped by: grover wade(Diamond Carrizales ) on Not Available Not Available Not Available Vitamin D3 active Not Available Not Available Not Available multivita min active Not Available Not Available Not Available Multivita mins 08/10 completed Multivit amins Allow Substitu tion: True Refill Denied: No Refill DateOccu rred: 04/13/20 18 Edited by: marielai wade(Sarabjit Carrizalesl ) on 07/31/20 Stopped by: wendyhei wade(Sarabjit Carrizalesl ) on Not Available Not Available Not Available green tea extract active Not Available Not Available Not Available calcium 600 mg (as carbonate )-vitamin D3 10 mcg (400 unit) tablet Take 1 tablet(s ) by mouth daily 08/10 completed calcium carbonat e-vitami n D3 600 mg(1,500 mg) -400 unit oral tablet RxNorm: 212148 Allow Substitu tion: True Refill Denied: No Refill DateOccu rred: 04/13/20 Edited by: wendyhei wade(Sarabjit Carrizalesl ) on 07/31/20 Stopped by: wendyhei wade(Diamond Carrizales ) on Not Available Not Available Not Available CoQ-10 100 mg capsule Take by oral route. active Not Available Not Available No t Available Joint Support 08/10 completed Joint support Refill Denied: No Refill DateOccu rred: 07/31/20 Edited by: Diamond Natarajan ) on 07/31/20 Stopped by: grover olvera(Diamond Carrizales ) on Not Available Not Available Not Available BD Ultra-Fin e Sharee Pen Needle 32 gauge x 5/32 EVERY DAY 08/15 completed Not Available Not Available Not Available Xarelto 20 mg tablet TAKE ONE TABLET BY MOUTH ONCE DAILY, MUST ADMINIST ER WITH EVENING MEAL active Not Available Not Available No t Available BD Insulin Syringe Ultra-Fin e 1 mL 31 gauge x 5/16 INJECT B12 SUBCUTAN EOUSLY ONCE WEEKLY FOR 90 DAYS 08/15 completed Not Available Not Available Not Available d-mannose active Not Available Not Joslyn ilable Not Available Jublia 10 % topical solution with applicato r active Not Available Not Available Not Available Saxenda 3 mg/0.5 mL (18 mg/3 mL) subcutane ous pen injector INJECT 3MG UNDER THE SKIN DAILY 08/10 completed Not Available Not Available Not Available calcium 1,000 mg (as calcium carbonate 2,500 mg) effervesc ent tablet Take by oral route. active Not Available Not Available No t Available zinc (citrate) 11 mg chewable tablet Take by oral route. active Not Available Not Available No t Available Vitals Date Recorded Body height Provider Name an d Address Organization Details Last Updated DateTime 08/04/2022 170.18 cm [facility] [employer] 08/04/2022 14:26:53 Date Recorded Body mass index (BMI) Body weight Provider Name and Address Organization Details Last Updated DateTime 08/04/2022 38.7 kg/m2 405317.6 g [facility] 08/04/2022 14:26:48 Date Recorded Body height Provider Name an d Address Organization Details Last Updated DateTime 09/06/2022 170.18 cm [facility] [employer] [facility] 09/06/2022 14:39:56 Date Recorded Body mass index (BMI) Body weight Provider Name and Address Organization Details Last Updated DateTime 09/06/2022 38.9 kg/m2 086161.34 g Tali Bautista [facility] 09/06/2022 14:43:34 Date Recorded Body height Provider Name an d Address Organization Details Last Updated DateTime 08/10/2023 170.18 cm Yakelin Bertrand [facility] 08/10/2023 13:34:17 Date Recorded Body temperature Provider Name a nd Address Organization Details Last Updated DateTime 08/10/2023 97.8 [degF] Yakelin Bertrand [facility] 08/10/2023 13:42:45 Date Recorded Body mass index (BMI) Body weight Provider Name and Address Organization Details Last Updated DateTime 08/10/2023 38.3 kg/m2 645000.98 g Yakelin Bertrand [facility] 08/10/2023 13:59:33 Date Recorded Body weight Provider Name an d Address Organization Details Last Updated DateTime 08/15/2024 614898.92 g [facility] 08/15/2024 13:09:59 Date Recorded Body mass index (BMI) Provider Name and Address Organization Details Last Updated DateTime 08/15/2024 37.8 kg/m2 Memo Bird [facility] 08/15/2024 13:19:33 Date Recorded Body height Provider Name an d Address Organization Details Last Updated DateTime 08/15/2024 170.18 cm [facility]o [facility] 08/15/2024 13:19:34 Date Recorded Systolic blood pressure Diastolic blood pressure Provider Name and Address Organization Details Last Updated DateTime 08/04/2022 128 mm[Hg] 80 mm[Hg] Tali Bautista [facility] 08/04/2022 14:26:34 Date Recorded Systolic blood pressure Diastolic blood pressure Provider Name and Address Organization Details Last Updated DateTime 09/06/2022 132 mm[Hg] 80 mm[Hg] Tali Bautista [facility] 09/06/2022 14:43:27 Date Recorded Systolic blood pressure Diastolic blood pressure Provider Name and Address Organization Details Last Updated DateTime 08/10/2023 128 mm[Hg] 84 mm[Hg] Yakelin Bertrand [facility] 08/10/2023 13:59:38 Date Recorded Systolic blood pressure Diastolic blood pressure Provider Name and Address Organization Details Last Updated DateTime 08/15/2024 126 mm[Hg] 86 mm[Hg] Memo Bird [employer] [facility] 08/15/2024 13:19:28 Social History Question Answer Notes LastModified by Organizat ion Details LastModified Time Tobacco Smoking Status Never Smoker Susu zamudio, ID [employer] [facility] 07/29/2022 14:45:18 What Is Your Level Of Alcohol Consumption? Moderate Information not available 08/10/2023 How Many Years Have You Consumed Alcohol? 20 Information not available 08/15/2024 Are You Blind Or Do You Have Difficulty Seeing? No [email or web address] Information not available 08/10/2023 Are You Currently Employed? No Information not available 07/29/2022 Are You Deaf Or Do You Have Serious Difficulty Hearing? No [email or web address] Information not available 08/10/2023 What Type Of Diet Are You Following? REGULAR [email or web address] Information not available 08/04/2022 Do You Or Have You Ever Used E-cigarettes Or Vape? Never Used Electronic Cigarettes Information not available 08/10/2023 How Many Children Do You Have? 2 Information not available 07/29/2022 What Is Your Relationship Status? [email or web address] Information not available 08/04/2022 Are You Sexually Active? Yes Information not available 08/15/2024 Do You Use Any Illicit Or Recreational Drugs? No Information not available 07/29/2022 Have You Used IV Drugs? No Information not available 08/10/2023 Do You Or Have You Ever Used Any Other Forms Of Tobacco Or Nicotine? No Information not available 07/29/2022 Sex: Unknown Functional Status Question Answer Note LastModified by Organization D etails LastModified Time What is your exercise level? Moderate Information not available 08/10/2023 Mental Status None recorded. Family History Relationship Description Onset Age of this Age Resolved Age Notes LastModified by Organization Details LastModified Time Mother Parkinson's disease API-27 Not available 2023 12:46:26 Mother Osteoporosis Not avai lable 07/29/2022 14:44:33 Medical History Condition Response High Blood Pressure N Kidney Stones N Blood Diseases N Cytomegalovirus N Hyperthyroidism N MRSA N Blood Transfusion N COPD N Depression N Incontinence N Anxiety Disorder N Muscle, Joint, or Bone Problems N Autoimmune disease N Obesity N Vision or Eye Problems N Arthritis N Auditory Hallucinations N Polycystic Ovarian Syndrome N Mental Disorder N Hematuria N Stroke N Varicosities N Seasonal allergies N Crohn's Disease N Alzheimer's/Dementia N COPD/Emphysema N Kidney Infection N Fibromyalgia N Kidney Disease N Gallbladder disease N Von Willebrand disease N Ear or Hearing Problems N Hospitalizations N Learning Disorder N Skin Problems N Eating Disorder N Diabetes Mellitus (non-insulin dependent ) N MRSA exposure N Ovarian Problems N Constipation N Brain Injury N Frequent Urinary Tract infections N Osteopenia N GERD (reflux) N Visual Hallucinations N Diabetes (insulin dependent) N Tuberculosis N AIDS/HIV N Asthma N Heart Attack N Endometrial Cancer N GERD/Reflux N Hepatitis N Pulmonary Embolism N Chronic Ear Infections N RPR N Autism Spectrum Disorder (ASD) N Chicken Pox N Other Cancer N Thyroid Disease N Colon Cancer N Herpes (HSV) N Breast Cancer N Lung Cancer N Developmental or Behavioral Disorders N Difficulty Swallowing N Panic Attacks N Neurological Disorder N Deep Vein Thrombosis Y Meniere's disease N Tuberculosis/Positive PPD N Shingles N Cervical Cancer N Chlamydia N HPV/Genital Warts N Endometriosis N Bladder or Kidney Problems N High Cholesterol N Liver Disease N Psychiatric/Mental Health Condition N Schizophrenia N Ulcer N Allergies/Hayfever N HIV N Sickle Cell Disease/Trait N ADD/ADHD N Anemia N Multiple Sclerosis N Gonorrhea N Mental Illness N Headaches/migraines N Ovarian Cancer N Bedwetting N Seizures/Epilepsy N Fibroids Y Amnesia N Congestive Heart Failure (CHF) N Diverticulitis N Lupus N Rubella N Blood Clotting Disorder Y Bipolar Disorder N Reflux/GERD N Diabetes Mellitus (during ) N Ulcerative Colitis N Heart Disease N Tourette Syndrome N Osteoporosis N Gynecological History Statement/Question Response If Post Menopausal, Age at Menopause 55 Date of Last Colonoscopy 07/03/2023 Date of LMP Most Recent Bone Density 11/06/2020 Date of Last Pap Smear 08/10/2023 Most Recent Mammogram 10/20/2023 Current Control Method Menopause Age at Menarche Obstetrics History GPAL:G 2 P 2 0 0 2 Type Value Multiple Births 0 Full Term 2 Induced 0 Spontaneous 0 Premature 0 Living 2 Ectopics 0 Total 2 Immunizations Vaccine Type Date Status Note Provider Nam e and Address Organization Details Recorded Time COVID-19, mRNA, LNP-S, PF, 10 mcg/0.2 mL dose, vandana-sucrose 06/14/2021 completed Yakelin zamudio, [facility] [employer] 08/10/2023 13:35:26 COVID-19, mRNA, LNP-S, PF, 10 mcg/0.2 mL dose, vandana-sucrose 07/05/2021 completed Yakelin zamudio, [facility] [employer] IV 08/10/2023 13:35:26 Past Encounters Encounter ID Performer Location Encounter Start Date Encounter Closed Date Diagnosis/Indication Diagnosis SNOMED-CT Code Diagnosis ICD10 Code Diagnosis Note [id number] Naomy Reyez MD [address] [address] 08/04/2022 13:57:13 08/04/2022 15:20:42 Gynecologic examination 33766114 Z01.419 Cologard for colon cancer screening. Screening for malignant neoplasm of cervix 367253315 Z12.4 Screening for malignant neoplasm of breast 574195060 Z12.39 Screening for malignant neoplasm of colon 857408191 Z12.11 Uterine leiomyoma 312301 05 D25.9 follow up for u/s [id number] Naomy Reyez MD [address] [address] 09/06/2022 14:06:21 09/06/2022 15:02:36 Uterine leiomyoma 16190130 D25.9 Discussed presence of fibroids. We reviewed the different treatment options for fibroids including hormonal contracept garry, [place] and hysterecto my. Risks and benefits were reviewed for each of these options. Patient is most interested in hysterecto my given the permanent nature of this option. At least hysterosco py/D&C recommende d Endometrium thickened 44 8546917 R93.89 [id number] Naomy Reyez MD [address] [address] 08/10/2023 12:13:38 08/10/2023 16:37:50 Uterine leiomyoma 88765798 D25.9 Uterine fibroids stable in size. No bleeding. No pain. 30 minutes spent reviewing history, counseling and documentat ion of today's patient visit. Gynecologi c examination 74318404 Z01.419 Screening for malignant neoplasm of cervix 900367676 Z12.4 Screening for malignant neoplasm of breast 240075885 Z12.39 Depression screening 171 593493 Z13.31 [id number] Naomy Reyez MD [facility] [address] [place] [address] 08/15/2024 12:46:25 08/15/2024 14:27:09 Gynecologic examination 52466317 Z01.419 Screening for malignant neoplasm of cervix 256285638 Z12.4 Screening for malignant neoplasm of breast 250100007 Z12.31 Depression screening 171 662454 Z13.31 refer to intake screening Intramural leiomyoma of uterus 71453156 D25.1 D25.0 D25.2 Non-surgic al approach due to menopause status and current lack of significan t uterine symptoms. If pap outcomes remain abnormal, serious contemplat ion of hysterecto my can be revisited as a conclusive interventi on informed by systematic risk-benef it assessment s. Health Concerns Section Related Observation LastModified by Organization Detai ls LastModified Time None Recorded Concern Status LastModified by Organization Details LastModified Time None Recorded Advance Directives Directive None Recorded Payers Encounter Date Sequence Insurance Name Policy Number Policy Wilson Covered Member ID Wilson Member ID Guarantor Name 08/04/2022 1 [employer] - [employer] - OPEN ACCESS Roselyn Miramontes Rehkemper [id number] OI Roselyn Miramontes Rehkemper 09/06/2022 1 [employer] - [employer] - OPEN ACCESS Roselyn Miramontes Rehkemper [id number] OI Roselyn Miramontes Rehkemper 08/10/2023 1 Provender - [employer] - OPEN ACCESS Roselyn Miramontes Rehkemper [id number] OI Roselyn Miramontes Rehkemper 08/15/2024 1 Prov[employer] - [employer] - OPEN ACCESS Roselyn Miramontes Rehkemper [id number] OI Roselyn Miramontes Rehkemper Notes Date Note Type Note Provider Name and Address Organization Details Recorded Time 08/04/2022 text/html Annual GYNReport ed bypatient.History:no gynecologic complaints Menstrual cycle:menopause Urinary symptoms:No hematuria; No incontinence Vulva:No genital lesion Vagina:Normal vaginal discharge Breast:No breast pain; No breast lump; No nipple discharge Current Contraception:Not sexually active Sexual complaints:not sexually active Menopausal Symptoms:No menopausal symptoms Psychological symptoms:No depression; No anxiety Preventive measures:Encourage self breast examination; Encourage regular exercise; Needs to schedule mammogram; mammogram due after 08/19/2022, never gets colonoscopy Roselyn here for annual well women visit Naomy Reyez MD [address] [place] [address], [phone], [facility] [employer] 08/06/2022 21:25:56 09/06/2022 text/html Roselyn here for f/ u on Fibroid, she denies any pain or bleeding, U/S done today Naomy Reyez MD [address] [place] [address], [phone], [employer] 09/09/2022 17:22:16 08/10/2023 text/html Annual GYNReport ed bypatient.History:no gynecologic complaints Menstrual cycle:Normal menses Urinary symptoms:No hematuria; No incontinence Vulva:No genital lesion Vagina:Normal vaginal discharge Breast:No breast pain; No breast lump; No nipple discharge Sexual complaints:No sexual complaints; No pain during intercourse; Normal libido Menopausal Symptoms:No menopausal symptoms; Normal vaginal lubrication Psychological symptoms:No depression; No anxiety; No PMDD Roselyn 58 y/o presents for a gynecological Annual Exam. The patient denies any changes in her medical history. The patient denies any changes in her family medical history. pt feeling overwhelm due to some personal issues. Naomy Reyez MD [address] [place] [address], [phone], [employer] 08/10/2023 14:23:03 08/15/2024 text/html Roselyn 59 y/o is h ere for annual exam. Her last pap smear was 08/2023 and normal. She is UTD with mammogram 10/2023 and normal. She is UTD with cologuard 2022 and normal. She denies any concerns as of today. The patient is a 59-year-old female presenting with a primary concern for a routine gynecological examination and follow-up. The visit is part of regular health maintenance, with an emphasis on routine cancer screenings and continued management of reported osteoarthritis and knee issues. Furthermore, the patient's gynecological history includes fibroid uterus, which complicates the visualization of the cervix during routine pap tests. The fibroids contribute to displacement, making thorough cervical evaluations during the office visit quite challenging. Naomy Reyez MD [address] [facility], [place], [phone], [facility] 08/19/2024 18:14:40 OBGyn Episode No OBEpisode recorded.
--- OUTSIDE RECORDS SUMMARY | 2024-11-29 02:25 | XMS_ITS | Referral Summary ---
Author Organization [facility] Address [address] [place] [address] Care Team Providers Care [employer] Name Role Phone Machelle Coker MD Primary Care Provider Machelle Coker MD Unavailable [phone] Thompson Bull MD Unavailable [phone] Encounters Date Type Department Care Team Description 09/16/2024 10:30 AM REED OR WIND INSTRUMENT TUNER Office Visit [facility] at [address] [place] [phone] Cassie Davies, [place] Type 2 diabetes mellitus without complication, without long-term current use of insulin (CMS/HCC) (HCC) (Primary Dx); High serum vitamin B12 09/13/2024 9:49 AM REED OR WIND INSTRUMENT TUNER - 09/13/2024 11:59 PM REED OR WIND INSTRUMENT TUNER Hospital Encounter [facility] Nutrition and Diabetic Education [address] [facility] [place] [address] Astudillo, Annita Anderson RD Discharge Disposition: Discharge to home or self care from Last 3 Months Allergies No known active allergies Medications XARELTO 20 mg tablet TK 1 T PO D 5 04/05/20 18 Active magnesium oxide 500 mg capsule Take by mouth. Active calcium carbonate-vitam in D2 (OSCAL) 250 (625)-125 mg-unit per tablet Take 1 tablet by mouth daily Active lysine 1,000 mg tablet Take by mouth. Activ e cholecalciferol (VITAMIN D-3) 2,000 unit tablet Active coenzyme Q10 10 mg capsule Take 1 capsule (10 mg total) by mouth daily Active cinnamon bark 500 mg capsule Take 1 capsule (500 mg total) by mouth daily Active methylsulfonylm ethane (MSM ORAL) Take by mouth Active ZINC ORAL Take by mouth Active ascorbic acid/collagen hydr (COLLAGEN PLUS VITAMIN C ORAL) Take by mouth Active potassium 99 mg tablet Take by mouth Active ascorbic acid (VITAMIN C) 500 mg tablet,chewable Acti ve multivitamin capsule Take 1 capsule by mouth daily Active insulin syringe-needle U-100 (BD Insulin Syringe Ultra-Fine) 1 mL 31 gauge x 5/16 syringe INJECT B12 SUBCUTANEOUSLY ONCE WEEKLY X 90 DAYS 10 each 3 11/22/19 24 Active Jublia 10 % solution with applicator 02/01/20 24 Active tirzepatide, weight loss, (Zepbound) 2.5 mg/0.5 mL pen injectorIndicat ions:Wt Loss Mgmt, Pt with BMI 27-29 & Wt-Related Comorbidity Inject 0.5 mL (2.5 mg total) under the skin every 7 days 2 mL 3 11/20/19 25 Active tirzepatide (MOUNJARO) 2.5 mg/0.5 mL pen injector Inject 0.5 mL (2.5 mg total) under the skin once a week 2 mL 09/16/20 24 025 Discontin ued(Thera py completed ) Active Problems Problem Noted Date Diagnosed Date High serum vitamin B12 09/16/2024 Assessment & Plan (09/16/2024 4:54 PM REED OR WIND INSTRUMENT TUNER): Reports has been taking Vitamin b12 injections from previous sap ppm consultant. Asking for a refill. Reports she was taking this for fatigue. Stop Vitamin B12 injection. repeat vitamin B12 level in 1 month and treat as per labs. Last Vitamin B12 level elevated Latest Reference Range & Units 04/11/24 11:19 Vitamin B12 230 - 1,250 pg/mL 1,358 (H) (H): Data is abnormally high Type 2 diabetes mellitus wit hout complication, without long-term current use of insulin ([facility]) 09/14/2023 Assessment & Plan (09/16/2024 4:48 PM REED OR WIND INSTRUMENT TUNER): This is a chronic condition which is at goal with sexenda . Goal is less than 7%. Personally reviewed most recent A1c - Lab Results Component Value Date HGBA1C 5.6 09/16/2024 Personally reviewed POC blood sugar- at goal of 80-180 Lab Results Component Value Date POCGLU 146 09/16/2024 Medication- switch saxenda to mounjaro 2.5mg weekly Monitor blood sugar daily Encouraged annual eye exam. Monofilament foot exam completed. Protective senses intact eGFR- 104. Labs from [employer]. Scanned and placed in Epic. Kidney function-normal Urine microalbumin/creatinine ratio - needed. Goal is <30. not treated with NOELLE/ARB Assessment & Plan (03/14/2024 11:34 AM CDT): This is a chronic condition which is at goal for prediabetes . Goal is less than 5.7-6.3%. Personally reviewed most recent A1c - Lab Results Component Value Date HGBA1C 5.7 03/14/2024 Personally reviewed POC blood sugar- at goal of 80-180 Lab Results Component Value Date POCGLU 111 03/14/2024 Medication- restart Saxenda Monitor blood sugar 3 times weekly. Encouraged annual eye exam. Monofilament foot exam completed. Protective senses intact Personally reviewed CMP eGFR- 105 Kidney function-normal B/P today- at goal . Goal is <140/90. Assessment & Plan (09/14/2023 1:27 PM REED OR WIND INSTRUMENT TUNER): This is a chronic condition which is at goal Personally reviewed most recent A1c - patient reports her last A1c was 5.6 Personally reviewed POC blood sugar- at goal 80-180 Lab Results Component Value Date POCGLU 100 09/14/2023 Medication- Continue Saxenda 3 mg daily. Start it lowest dose and titrate up Monitor blood sugar daily Encouraged annual eye exam. Monofilament foot exam completed. protective senses intact Reports labs were completed . CMP, lipid panel, micro ratio needed. Will attempt to obtain labs from Dr. Cadet office Patient states she has a copy of the results and will drop them off in about 1 week. Urine microalbumin/creatinine ratio - goal <30 not treated with NOELLE/ARB B/P today- atgoal of <140/90. Discussed the primary treatment for prediabetes as weight loss exercise Ambulatory referral to Annita were dietitian History of DVT (deep vein thrombosis) 06/08/2018 Immunizations Name Administration Dates Next Due Influenza, Unspecified 08/19/2021,2019,08/06/2019,2017,08/11/2017 Pfizer SARS-CoV-2 Monovalent Vaccination (12+ Yrs) PURPLE 07/05/2021,06/14/2021 Social History Tobacco Use Types Packs/Day Years Used Date Smoking Tobacco: Never Smokeless Tobacco: Never Tobacco Cessation:Counseling Given: Not Answered Alcohol Use Standard Drinks/Week Comments Yes 8 (1 standard drink = 0.6 oz pur e alcohol) Comments Unknown Sex and Gender Information Value Date Recorded Sex Assigned at Not on file Legal Sex Female 12:13 AM REED OR WIND INSTRUMENT TUNER Gender Identity Female 09/17/2019 11:49 AM REED OR WIND INSTRUMENT TUNER Sexual Orientation Not on file Last Filed Vital Signs Vital Sign Reading Time Taken Comments Blood Pressure 126/76 09/16/2024 10:29 AM REED OR WIND INSTRUMENT TUNER Pulse 57 04/11/2024 11:29 AM CDT Temperature 36.6 ??C (97.8 ??F) 04/11/2024 1 1:29 AM CDT Respiratory Rate 17 04/11/2024 11:2 9 AM CDT Oxygen Saturation 97% 04/11/2024 11: 29 AM CDT Inhaled Oxygen Concentration - - Weight 117.1 kg (258 lb 1.6 oz) 024 10:29 AM REED OR WIND INSTRUMENT TUNER Height 170.2 cm (5' 7 ) 09/16/2024 10:2 9 AM REED OR WIND INSTRUMENT TUNER Body Mass Index 40.42 09/16/2024 10:29 AM REED OR WIND INSTRUMENT TUNER Plan of Treatment Not on file Procedures Procedure Name Priority Date/Time Associated Diagnosis Comments VITAMIN B12 Routine 11/26/2024 9:54 AM REED OR WIND INSTRUMENT TUNER High serum vitamin B12 POCT HEMOGLOBIN A1C Routine 09/16/2024 1 0:32 AM REED OR WIND INSTRUMENT TUNER Type 2 diabetes mellitus without complication, without long-term current use of insulin ([facility] ([facility]) POCT GLUCOSE Routine 09/16/2024 10:30 AM REED OR WIND INSTRUMENT TUNER Type 2 diabetes mellitus without complication, without long-term current use of insulin (CMS/HCC) (HCC) EGFR Routine 04/11/2024 11:19 AM CDT Iron deficiency anemia, unspecified iron deficiency anemia type DIABETIC EYE EXAM Routine 03/21/2024 from Last 3 Months or Most Recently Relevant to Health Maintenance Results * (ABNORMAL) Vitamin B12 (11/26/2024 9:54 AM REED OR WIND INSTRUMENT TUNER) Vitamin B12 1,492(H) 200 - 1,100 pg/mL [facility] Blood 11/26/2024 9:54 AM REED OR WIND INSTRUMENT TUNER 11/26/2024 9:55 AM REED OR WIND INSTRUMENT TUNER Cassie Davies NURSE [facility] LAB BLOOD ORDERABLES Final Resu lt [facility] [address] [place] [address] * POCT hemoglobin A1c (09/16/2024 10:32 AM REED OR WIND INSTRUMENT TUNER) Pathologist [facility] Hemoglobin A1C, POC 5.6 4.0 - 5.6 % Blood 09/16/2024 10:3 2 AM REED OR WIND INSTRUMENT TUNER us Cassie Davies NP POINT OF CARE TEST ORDERABLES F inal Result * POCT glucose (09/16/2024 10:30 AM REED OR WIND INSTRUMENT TUNER) Glucose Blood, POC 146 mg/dL Blood 09/16/2024 10:3 0 AM REED OR WIND INSTRUMENT TUNER us Cassie Davies NURSE [employer] POINT OF CARE TEST ORDERABLES F inal Result * eGFR (04/11/2024 11:19 AM CDT) eGFR >90 >=60 mL/min/1. 73 m2 Comment: Interpretive Data Reference Interval Normal ?>/= 90 mL/min/1.73m2 Mildly decreased* ? 60 - 89 mL/min/1.73m2 Mildly to moderately decreased ?45 - 59 mL/min/1.73m2 Moderately to severely decreased ??30 - 44 mL/min/1.73m2 Severely decreased ?15 - 29 mL/min/1.73m2 Kidney Failure ?< 15 ??mL/min/1.73m2 *Relative to young adult level Estimated glomerular filtration rate is determined by the 2020 CKD-EPI equation recommended by the National Kidney Foundation (A Unifying Approach to GFR Estimation: Recommendations of the NKF-ASK Task Force on Reassessing the Inclusion of Race in Diagnosing Kidney Disease, JAELSPoly 2020). The CKD-EPI equation should not be used for patients with unstable renal function and has not been validated in children and those over 70. Current interpretive data was last reviewed 2021. Testing performed by: [facility], [address] [place] [address]., [id number] Blood 04/11/2024 11:1 9 AM CDT 04/11/2024 11:29 AM CDT us Thompson Bull MD LAB BLOOD ORDERABLES Final R esult Performing Organization Address City/State/[facility] Co de Phone Number [facility] [address] [facility] Department [place] [address] * Diabetic Eye Exam (03/21/2024) us Historical Provider HEALTH MAINTENANCE Final Result from Last 3 Months or Most Recently Relevant to Health Maintenance Insurance [facility] [id number] [employer] Care Teams [employer] Relationship Specialty Start Date End Date Machelle Coker MD PCP - General Family Medicine 04/19/18 Machelle Coker MD (Fax) Family Medicine 04/19/18 [place] [address] [facility] [place] [address] Consulting Physician Hematology and Oncology 04/11/24
--- OUTSIDE RECORDS SUMMARY | 2024-11-29 02:25 | XMS_ITS | Clinical Summary ---
Author Organization [facility] Address [address] [place] [address] Care Team Providers Care Compliance Counsel Name Role Phone Machelle Coker MD Primary Care Provider [phone] Machelle Coker MD Unavailable [phone] Thompson Bull MD Unavailable [phone] Allergies No known active allergies Medications XARELTO [...] Syringe Ultra-Fine) 1 mL 31 gauge x 03/21 syringe INJECT B12 SUBCUTANEOUSLY ONCE WEEKLY X [...] 09/16/2024 Assessment & Plan (09/16/2024 4:54 PM SENIOR SYSTEMS SOFTWARE ENGINEER): Reports has been taking Vitamin b12 injections from previous complaint inspector. Asking for a refill. Reports she was [...] complication, without long-term current use of insulin ([facility]) 09/14/2023 Assessment & Plan (09/16/2024 4:48 PM SENIOR SYSTEMS SOFTWARE ENGINEER): This is a chronic condition which is [...] Protective senses intact eGFR- 104. Labs from [facility] labs. Scanned and placed in Epic. Kidney function-normal [...] <140/90. Assessment & Plan (09/14/2023 1:27 PM SENIOR SYSTEMS SOFTWARE ENGINEER): This is a chronic condition which is [...] protective senses intact Reports labs were completed -07/29. CMP, lipid panel, micro ratio needed. Will [...] History of DVT (deep vein thrombosis) 06/08/2018 Encounters Date Type Department Care Team Description 09/16/2024 10:30 AM SENIOR SYSTEMS SOFTWARE ENGINEER Office Visit [facility] at [address] [place] [id number] Cassie Davies, [place] Type 2 diabetes mellitus without complication, without long-term current use of insulin (CMS/HCC) (HCC) (Primary Dx); High serum vitamin B12 09/13/2024 9:49 AM SENIOR SYSTEMS SOFTWARE ENGINEER - 09/13/2024 11:59 PM SENIOR SYSTEMS SOFTWARE ENGINEER Hospital Encounter [facility] Nutrition and Diabetic Education [facility] Room [address] [place] [address] Astudillo, Annita Anderson RD Discharge Disposition: Discharge to home or self care from Last 3 Months Immunizations Name Administration Dates Next Due Influenza, Unspecified 08/19/2021,2019,08/06/2019,2017,08/11/2017 Pfizer SARS-CoV-2 Monovalent Vaccination (12+ Yrs) PURPLE 07/05/2021,06/14/2021 Surgical History Surgery Date Site/Laterality Comments SECTION APPENDECTOMY TEAR DUCT SURGERY TONGUE SURGERY MANDIBLE FRACTURE SURGERY Medical History Medical History Date Comments DVT (deep venous thrombosis) ([facility]) ([facility]) Anemia Type 2 diabetes mellitus wit hout complication, without long-term current use of insulin ([facility]) ([facility]) 09/14/2023 Family History Medical History Relation Name Comments Dementia Father Melanoma Father Diabetes Maternal Grandfather Diabetes Maternal Grandmother Ovarian cancer Mother's Sister Diabetes Paternal Grandmother Relation Name Status Comments Father Maternal Grandfather (Age 79) Maternal Grandmother (Age 84) Mother's Sister (Age 31) Paternal Grandfather (Age 93) Paternal Grandmother (Age 88) Social History Tobacco Use Types Packs/Day Years Used Date Smoking Tobacco: Never Smokeless Tobacco: Never Tobacco Cessation:Counseling Given: Not Answered Alcohol Use Standard Drinks/Week Comments Yes 8 (1 standard drink = 0.6 oz pur e alcohol) Comments Unknown Sex and Gender Information Value Date Recorded Sex Assigned at Not on file Legal Sex Female 12:13 AM SENIOR SYSTEMS SOFTWARE ENGINEER Gender Identity Female 09/17/2019 11:49 AM SENIOR SYSTEMS SOFTWARE ENGINEER Sexual Orientation Not on file Obstetrics History Last Filed Vital Signs Vital Sign Reading Time Taken Comments Blood Pressure 126/76 09/16/2024 10:29 AM SENIOR SYSTEMS SOFTWARE ENGINEER Pulse 57 04/11/2024 11:29 AM CDT Temperature 36.6 ??C (97.8 ??F) 04/11/2024 1 1:29 AM CDT Respiratory Rate 17 04/11/2024 11:2 9 AM CDT Oxygen Saturation 97% 04/11/2024 11: 29 AM CDT Inhaled Oxygen Concentration - - Weight 117.1 kg (258 lb 1.6 oz) 024 10:29 AM SENIOR SYSTEMS SOFTWARE ENGINEER Height 170.2 cm (5' 7 ) 09/16/2024 10:2 9 AM SENIOR SYSTEMS SOFTWARE ENGINEER Body Mass Index 40.42 09/16/2024 10:29 AM SENIOR SYSTEMS SOFTWARE ENGINEER Plan of Treatment Health Maintenance Due Date Last Done Comments Albumin Creatinine Ratio, Urine 1965 Breast Cancer Screening-Mammogram 1965 Cervical Cancer Screening 1965 Colon Cancer Screening-Colonoscopy 1965 Depression Screening 1965 Hepatitis C Screening 1965 Lipid Panel 1965 Pneumococcal vaccine <65 (1 of 2 - PCV) 1971 DTaP/Tdap/Td Vaccine (1 - Tdap) 1976 Hepatitis B Screening 1983 Regular Well Visit/Exam 18-64 1983 Zoster Vaccine (1 of 2) 2015 Covid-19 Vaccine (3 - 2023-2 5 season) 2024 07/05/2021, 06/14/2021 Influenza Vaccine (#1) 2024 , 07/27/2020, 08/06/2019, Additional history exists Hemoglobin A1C 03/16/2025 09/16/2024, 05/0 07/2024, 08/04/2023, Additional history exists eGFR 04/11/2025 04/11/2024, 10/0 12/2022, 08/07/2023, Additional history exists Foot Exam 09/16/2025 09/16/2024, 05/0 07/2024, 09/14/2023 Dilated Eye Exam 03/21/2026 03/21/2024 Procedures Procedure Name Priority Date/Time Associated Diagnosis Comments VITAMIN B12 Routine 11/26/2024 9:54 AM SENIOR SYSTEMS SOFTWARE ENGINEER High serum vitamin B12 POCT HEMOGLOBIN A1C Routine 09/16/2024 1 0:32 AM SENIOR SYSTEMS SOFTWARE ENGINEER Type 2 diabetes mellitus without complication, without long-term current use of insulin ([facility]/H[facility]) ([facility]) POCT GLUCOSE Routine 09/16/2024 10:30 AM SENIOR SYSTEMS SOFTWARE ENGINEER Type 2 diabetes mellitus without complication, without long-term current use of insulin (CMS/HCC) ([facility]) EGFR Routine 04/11/2024 11:19 AM CDT Iron deficiency anemia, unspecified iron deficiency anemia type DIABETIC EYE EXAM Routine 03/21/2024 from Last 3 Months or Most Recently Relevant to Health Maintenance Results * (ABNORMAL) Vitamin B12 (11/26/2024 9:54 AM SENIOR SYSTEMS SOFTWARE ENGINEER) Vitamin B12 1,492(H) 200 - 1,100 pg/mL [facility] Blood 11/26/2024 9:54 AM SENIOR SYSTEMS SOFTWARE ENGINEER 11/26/2024 9:55 AM SENIOR SYSTEMS SOFTWARE ENGINEER us Cassie Davies NP LAB BLOOD ORDERABLES Final Resu lt [facility] [address] [place] [address] * POCT hemoglobin A1c (09/16/2024 10:32 AM SENIOR SYSTEMS SOFTWARE ENGINEER) Hemoglobin A1C, POC 5.6 4.0 - 5.6 % Blood 09/16/2024 10:3 2 AM SENIOR SYSTEMS SOFTWARE ENGINEER us Cassie Davies NP POINT OF CARE TEST ORDERABLES F inal Result * POCT glucose (09/16/2024 10:30 AM SENIOR SYSTEMS SOFTWARE ENGINEER) Glucose Blood, POC 146 mg/dL Blood 09/16/2024 10:3 0 AM SENIOR SYSTEMS SOFTWARE ENGINEER us Cassie Davies NP POINT OF CARE [...] Inclusion of Race in Diagnosing Kidney Disease, JASN 2020). The CKD-EPI equation should not be used for patients with unstable renal function and has not been validated in children and those over 70. Current interpretive data was last reviewed 2021. Testing performed by: [facility], [address] [place] [address]., [id number] Blood 04/11/2024 11:1 9 AM CDT 04/11/2024 11:29 AM CDT us Thompson Bull MD LAB BLOOD ORDERABLES Final R esult [facility] [address] [facility] Department [place] [address] * Diabetic Eye Exam (03/21/2024) us Historical Provider HEALTH MAINTENANCE Final Result from Last 3 Months or Most Recently Relevant to Health Maintenance Insurance [facility] [id number] [employer] Care Teams Compliance Counsel Relationship Specialty Start Date End Date Machelle Coker MD PCP - General Family Medicine 04/19/18 Machelle Coker MD Family Medicine 04/19/18 [place] [id number] [facility] [place] [address] Consulting Physician Hematology and Oncology 04/11/24
--- OUTSIDE RECORDS SUMMARY | 2024-11-29 02:25 | XMS_ITS | Data Portability ---
Author Organization [employer] [facility]) Address [address] [place] [address] Care Team Providers Care Engineering Design Supervisor Name Role Phone ROBERT RINCON Primary Care Provider [phone] SUZANNE STEEL Director Of Officiating Assessment Encounter Date Assessment Date Assessment LastModified by Organization Details LastModified Time 02/03/2023 02/03/2023 57 year old female status post IVUS procedure on 01/17/2023 being seen for follow up. Her recent IVUS procedure revealed approximately 50% extrinsic compression of the left iliac vein was visualized caused by the adjacent artery; no stenting was performed. She continues to have left lower extremity cramping and pain despite using compression therapy. Her previous lower extremity venous ultrasound demonstrated reflux at the bilateral saphenofemoral junction. Reflux was seen to the left GSV, bilateral SSV's and varicose veins with reflux of >1600 m/s. She is agreeable to vein closures. The risks, benefits and alternatives were discussed with the patient. The patient states that they understand and wish to proceed. Treatment planning is underway. Of note, if her symptoms persist despite vein closures, stenting of the left common iliac vein may be warranted. I have discussed this with her today. I spent a total of 45 minutes with the patient. The time was spent ? ? ? reviewing the chart? ? ? discussing with patient and/or family ? ? ? and forming a treatment plan Treatment plan Right leg: SSV closure-[id number] Ultrasound guided sclerotherapy of SSV varicosities-3647 0 Left leg: GSV closure-[id number] SSV closure-[id number] Ultrasound guided sclerotherapy of GSV varicosities-3647 0 Not available 02/05/2023 22:00:02 05/19/2023 05/19/2023 58-year-old female with history of chronic venous insufficiency and varicose veins status post vein closures presenting for lower extremity post vein treatment ultrasound. ? I have reviewed the results of her lower extremity venous ultrasound which displaces excellent closure of the left SSV and GSV above the knee. The GSV below the knee remains open with reflux. ? She reports a great improvement to her left lower extremity cramping and pain. She states she has not worn compression therapy since her vein closure procedures. I have recommended continued use of her compression therapy and following up in 3 months. Of note, since her lower extremity symptoms have improved we will wait on treating the left GSV below the knee at this time. In regards to her uterine fibroids I have recommended to delay any treatment as she currently denies symptoms including pelvic pain, pressure, urinary frequency, and menstrual cycle flow. Not available 05/21/2023 08:50:09 Plan of Treatment Reminders Order Date Submit Date Provider Last Modified By Organization Details Last Modified Time Details Appointments None record ed. Lab None record ed. Referral None record ed. Procedures None record ed. Surgeries None record ed. Imaging None record ed. Medication Orders None record ed. Patient TargetsNo targets recorded. Patient InstructionsNo instructions recorded. Reason for Referral None Reported. Results Created Date Observation Date Name Description Value Unit Range Abnormal Flag Note LastModifiedBy Organization Detail LastModifiedTime 01/07/2001/07/2023 COMPR EHENS HERMANN METAB OLIC PANEL glucose 103 mg/dL 65-99 high Fasti ng refer ence inter phil For someo ne witho ut known diabe macy, a gluco se value betwe en 100 and 125 mg/dL is consi stent with predi abete s and shoul d be confi rmed with a follo w-up test. Not Available [facility] [address] [address], [place], [address], 01/07/2023 03:09:20 01/07/2001/07/2023 COMPR EHENS HERMANN METAB OLIC PANEL urea nitrogen (BUN) 15 mg/dL 7-25 normal Not Available [address], [address], 01/07/2023 03:09:20 01/07/20 23 01/07/2023 COMPR EHENS HERMANN METAB OLIC PANEL creatinine 0.67 mg/dL 0.50-1 .03 normal Not Available [address], [address], 01/07/2023 03:09:20 01/07/20 23 01/07/2023 COMPR EHENS HERMANN METAB OLIC PANEL eGFR 102 mL/mi n/1.7 3m2 > or = 60 normal The eGFR is based on the CKD-E PI 2020 equat ion. To calcu late the new eGFR from a previ ous Creat inine or Cysta tin C resul t, go to https ://tim garcia.boo michael.o jhoana/ilene dumont s/ kdoqi /gfr% 5Fcal culat or Not Available [address], [address], 01/07/2023 03:09:20 01/07/20 23 01/07/2023 COMPR EHENS HERMANN METAB OLIC PANEL BUN/creatini ne ratio NOT APPLIC ABLE (calc ) 6-22 Not Available [address], [address], 01/07/2023 03:09:20 01/07/20 23 01/07/2023 COMPR EHENS HERMANN METAB OLIC PANEL sodium 138 mmol/ L 135-14 6 normal Not Available [address], [address], 01/07/2023 03:09:20 01/07/20 23 01/07/2023 COMPR EHENS HERMANN METAB OLIC PANEL potassium 4.0 mmol/ L 3.5-5. 3 normal Not Available [address], [address], 01/07/2023 03:09:20 01/07/20 23 01/07/2023 COMPR EHENS HERMANN METAB OLIC PANEL chloride 104 mmol/ L 98-110 normal Not Available [address], [address], 01/07/2023 03:09:20 01/07/20 23 01/07/2023 COMPR EHENS HERMANN METAB OLIC PANEL carbon dioxide 30 mmol/ L 20-32 normal Not Available [address], [address], 01/07/2023 03:09:20 01/07/20 23 01/07/2023 COMPR EHENS HERMANN METAB OLIC PANEL calcium 9.4 mg/dL 8.6-10 .4 normal Not Available [address], [address], 01/07/2023 03:09:20 01/07/20 23 01/07/2023 COMPR EHENS HERMANN METAB OLIC PANEL protein, total 6.4 g/dL 6.1-8. 1 normal Not Available [address], [address], 01/07/2023 03:09:20 01/07/20 23 01/07/2023 COMPR EHENS HERMANN METAB OLIC PANEL albumin 4.4 g/dL 3.6-5. 1 normal Not Available [address], [address], 01/07/2023 03:09:20 01/07/20 23 01/07/2023 COMPR EHENS HERMANN METAB OLIC PANEL globulin 2.0 g/dL_ (calc ) 1.9-3. 7 normal Not Available [address], [address], 01/07/2023 03:09:20 01/07/20 23 01/07/2023 COMPR EHENS HERMANN METAB OLIC PANEL albumin/glob ulin ratio 2.2 (calc ) 1.0-2. 5 normal Not Available [address], [address], 01/07/2023 03:09:20 01/07/20 23 01/07/2023 COMPR EHENS HERMANN METAB OLIC PANEL bilirubin, total 0.8 mg/dL 0.2-1. 2 normal Not Available [address], [address], 01/07/2023 03:09:20 01/07/20 23 01/07/2023 COMPR EHENS HERMANN METAB OLIC PANEL alkaline phosphatase 59 U/L 37-153 normal Not Available [facility] Sar[facility] [address], [address], 01/07/2023 03:09:20 01/07/20 23 01/07/2023 COMPR EHENS HERMANN METAB OLIC PANEL AST 14 U/L 10-35 normal Not Available [address], [address], 01/07/2023 03:09:20 01/07/20 23 01/07/2023 COMPR EHENS HERMANN METAB OLIC PANEL ALT 17 U/L 6-29 normal Not Available [address], [address], 01/07/2023 03:09:20 01/07/20 23 01/07/2023 CBC (INCL UDES DIFF/ PLT) white blood cell count 5.9 thous and/u L 3.8-10 .8 normal Not Available [address], [address], 01/07/2023 03:09:21 01/07/20 23 01/07/2023 CBC (INCL UDES DIFF/ PLT) red blood cell count 4.70 bertha on/uL 3.80-5 .10 normal Not Available [address], [address], 01/07/2023 03:09:21 01/07/20 23 01/07/2023 CBC (INCL UDES DIFF/ PLT) hemoglobin 12.6 g/dL 11.7-1 5.5 normal Not Available [address], [address], 01/07/2023 03:09:21 01/07/20 23 01/07/2023 CBC (INCL UDES DIFF/ PLT) hematocrit 37.9 % 35.0-4 5.0 normal Not Available [address], [address], 01/07/2023 03:09:21 01/07/2001/07/2023 CBC (INCL UDES DIFF/ PLT) MCV 80.6 fL 80.0-1 00.0 normal Not Available [address], [address], 01/07/2023 03:09:21 01/07/20 23 01/07/2023 CBC (INCL UDES DIFF/ PLT) MCH 26.8 pg 27.0-3 3.0 low Not Available [address], [address], 01/07/2023 03:09:21 01/07/20 23 01/07/2023 CBC (INCL UDES DIFF/ PLT) MCHC 33.2 g/dL 32.0-3 6.0 normal Not Available [address], [address], 01/07/2023 03:09:21 01/07/20 23 01/07/2023 CBC (INCL UDES DIFF/ PLT) RDW 13.3 % 11.0-1 5.0 normal Not Available [address], [address], 01/07/2023 03:09:21 01/07/20 23 01/07/2023 CBC (INCL UDES DIFF/ PLT) platelet count 215 thous and/u L 140-40 0 normal Not Available [address], [address], 01/07/2023 03:09:21 01/07/2001/07/2023 CBC (INCL UDES DIFF/ PLT) MPV 10.6 fL 7.5-12 .5 normal Not Available [address], [address], 01/07/2023 03:09:21 01/07/20 23 01/07/2023 CBC (INCL UDES DIFF/ PLT) absolute neutrophils 4095 cells /uL 1500-7 800 normal Not Available [address], [address], 01/07/2023 03:09:21 01/07/20 23 01/07/2023 CBC (INCL UDES DIFF/ PLT) absolute lymphocytes 1239 cells /uL 850-39 00 normal Not Available [address], [address], 01/07/2023 03:09:21 01/07/20 23 01/07/2023 CBC (INCL UDES DIFF/ PLT) absolute monocytes 389 cells /uL 200-95 0 normal Not Available [address], [address], 01/07/2023 03:09:21 01/07/20 23 01/07/2023 CBC (INCL UDES DIFF/ PLT) absolute eosinophils 159 cells /uL 15-500 normal Not Available [address], [address], 01/07/2023 03:09:21 01/07/20 23 01/07/2023 CBC (INCL UDES DIFF/ PLT) absolute basophils 18 cells /uL 0-200 normal Not Available [address], [address], 01/07/2023 03:09:21 01/07/20 23 01/07/2023 CBC (INCL UDES DIFF/ PLT) neutrophils 69.4 % normal Not Available [address], [address], 01/07/2023 03:09:21 01/07/20 23 01/07/2023 CBC (INCL UDES DIFF/ PLT) lymphocytes 21.0 % normal Not Available [facility] [address], [address], 01/07/2023 03:09:21 01/07/20 23 01/07/2023 CBC (INCL UDES DIFF/ PLT) monocytes 6.6 % normal Not Available [address], [address], 01/07/2023 03:09:21 01/07/20 23 01/07/2023 CBC (INCL UDES DIFF/ PLT) eosinophils 2.7 % normal Not Available [address], [address], 01/07/2023 03:09:21 01/07/2001/07/2023 CBC (INCL UDES DIFF/ PLT) basophils 0.3 % normal Not Available [address], [address], 01/07/2023 03:09:21 01/07/2001/07/2023 PROTH ROMBI N TIME- INR INR 1.3 high Refer ence Range 0.9-1 .1 Moder ate-i ntens ity Warfa rin Thera py 2.0-3 .0 Highe r-int ensit y Warfa rin Thera py 3.0-4 .0 Not Available [address], [address], 01/07/2023 03:09:21 01/07/20 23 01/07/2023 PROTH ROMBI N TIME- INR PT 12.9 sec 9.0-11 .5 high For addit ional infor myra foy e refer to http: //[facility] pete wilson.que stdia gnost ics.c om/fa q/FAQ 104 (This link is being provi ded for infor kendy strauss/ educviv salvador l purpo ses only. ) Not Available [facility] [address] [address], [place], [address], 01/07/2023 03:09:21 01/07/20 23 01/07/2023 HEMOG LOBIN A1C hemoglobin A1C 5.8 %_of_ total _HGB <5.7 high For someo [...] diabe macy for child yuri. Not Available [employer] [facility] [address] [address], [place], [address], 01/07/2023 03:09:22 05/24/20 23 05/19/2023 US, alexia x, jenny s, lower extre mity, limit ed No observ ation record ed. [email or web address] Not Available 2022 09:13:56 Result Notes None recorded. 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 Procedures Surgical History Date Name Laterality Status Provider Name and Address Organization Details Recorded Time 023 OA limited LE ultrasound venous completed Vianney Pedroza [place] [facility] 05/19/2023 14:25:09 023 [place] [address], [address], [place] [facility] 04/10/2023 16:47:01 023 OA [place] [address], [address], [place] [facility] 03/30/2023 14:04:11 023 OA deep [place] [address], [address], [place] [facility] 01/17/2023 08:59:55 022 OALEVenousUSreflux completed Vianney Santillan [facility] 10/14/2022 14:13:32 09/29/2 022 completed LEONIDAS VARNER [place] [facility] 10/07/2022 13:19:15 section completed Corie Benson [place] [facility] 01/17/2023 07:24:03 Appendectomy completed Corie Benson [place] [facility]que [facility] 01/17/2023 07:24:14 local anesthetic infiltration of tear duct completed Corie Santillan [facility] 01/17/2023 07:25:09 open reduction maxillary fracture completed Corie [facility] 01/17/2023 07:25:53 Imaging Results Imaging Date Name Status LastModified by Samantha [email or web address] Details LastModified Time 05/19/2023 US, duplex, venous, lower extremity, limited completed Information not available 05/24/2023 09:13:56 Procedure Notes None recorded. Medical Equipment None Reported. Allergies No known drug allergies Medications Name Sig Start Date Stop Date Status Note LastModified by Organization Details LastModified Time amoxicillin 500 mg tablet TAKE 4 TABLETS BY MOUTH 1 HOUR PRIOR TO APPOINTMENT active Not Available Not Available Not Available cyanocobalam in (vit B-12) 1,000 mcg/mL injection solution INJECT 1 ML EVERY WEEK BY SUBCUTANEOU S ROUTE IN THE MORNING FOR 90 DAYS. active Not Available Not Available No t Available Xarelto 20 mg tablet TAKE ONE TABLET BY MOUTH ONCE DAILY, MUST ADMINISTER WITH EVENING MEAL active Not Available Not Available No t Available BD Insulin Syringe Ultra-Fine 1 mL 31 gauge x 5/16 INJECT B12 SUBCUTANEOU SLY ONCE WEEKLY X 90 DAYS active Not Available Not Available No t Available Vitals Date Recorded Body height Body mass index (BMI) Body weight Provider Name and Address Organization Details Last Updated DateTime 02/03/2023 170.18 cm 37.6 kg/m2 303750.17 g denny smith [place] [facility] 02/03/2023 10:00:20 Date Recorded Body height Provider Name an d Address Organization Details Last Updated DateTime 03/30/2023 170.18 cm denny smith [place] - [facility] 03/30/2023 12:49:14 Date Recorded Body height Body mass index (BMI) Body weight Heart rate Systolic blood pressure Diastolic blood pressure Provider Name and Address Organization Details Last Updated DateTime 3 170.18 cm 37.6 kg/m2 947540. 17 g 80 /min 146 mm[Hg] 87 mm[Hg] Vianney Pedroza [place] - [facility] 3 15:38:58 Date Recorded Body height Body height Provider Name and Address Organization Details Last Updated DateTime 05/19/2023 170.18 cm 170.18 cm Rea Nancerosaliotiachandana [place] [facility] 05/19/2023 11:57:36 Social History Question Answer Notes LastModified by Organizat ion Details LastModified Time Tobacco Smoking Status Never Smoker LEONIDAS GARDENIA zamudio, [place] - [facility] 10/07/2022 13:19:20 What Is Your Level Of Alcohol Consumption? Moderate Information not available 10/07/2022 What Is The Highest Grade Or Level Of School You Have Completed Or The Highest Degree You Have Received? [id number] Information not available 10/07/2022 What Is Your Occupation? [employer] Information not available 10/07/2022 What Was The Date Of Your Most Recent Tobacco Screening? 05/19/2023 [email or web address] Information not available 05/19/2023 How Many Years Have You Smoked Tobacco? 0 Information not available 10/07/2022 Sex: Unknown Functional Status None recorded. Mental Status None recorded. Family History Nothing Reported. Medical History Condition Response Coronary Artery Disease N COPD N Clotting Disorder N Pacemaker N Anemia N Genitourinary Disease N Ulcers N Gastrointestinal Disease N Deep Vein Thrombosis Y Diabetes N Varicose Veins N Anxiety Disorder N Anticoagulation therapy N Bleeding Disorder N Hyperlipidemia N Cancer N Stroke N Asthma N Neurologic Disorder N Hepatitis N Heart Disease N Pulmonary Embolism N Hypertension N Kidney Disease N Gynecological History Statement/Question Response N Sexually Active? N N N 08/04/2022 N Current Control Method None Obstetrics History GPAL:G 0 P 0 0 0 0 Past Encounters Encounter ID Performer Location Encounter Start Date Encounter Closed Date Diagnosis/Indication Diagnosis SNOMED-CT Code Diagnosis ICD10 Code Diagnosis Note [id number] [facility] [address] [facility] [place] [address] 10/07/2022 12:52:30 10/11/2022 11:09:56 Uterine leiomyoma 42006450 D25.9 Edema of l ower extremity 951633728 R60.0 History of deep vein thrombosis 542031405 Z86.718 [id number] Vianney Pedroza [employer] [place]a [place] [address] [facility] [place] [address] 10/14/2022 09:55:19 10/14/2022 14:17:37 Varicose veins of lower extremity 48597578 I83.893 [id number] MD MAGGIE Prajapati [facility] ( [place] ) [address] [facility] [place] [address] 10/14/2022 09:55:45 10/18/2022 16:17:23 Edema of lower extremity 323747799 R60.0 Varicose v eins of lower extremity 78506420 I83.893 Uterine leiomyoma 717572 05 D25.9 [id number] 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 [place] [facility] [address] [facility] [place] [address] 11/04/2022 11:25:04 11/10/2022 08:40:12 Pre-surgery testing 115981239 Z01.89 Uterine leiomyoma 342191 05 D25.9 Edema of l ower extremity 929937005 R60.0 Varicose v eins of lower extremity 66275198 I83.893 [id number] MD MAGGIE Prajapati [facility] [address] [place] [address] 01/17/2023 06:56:35 01/17/2023 09:29:35 Obstruction of iliac vein 686677250 I87.1 [id number] LAVON DAILY, [place] MINRosa Maria [facility] ( [place] ) [address] [facility] [place] [address] 02/03/2023 09:56:16 02/06/2023 10:50:51 Varicose veins of lower extremity 93290112 I83.893 Edema of l ower extremity 483579717 R60.0 Obstructio n of iliac vein 454309911 I87.1 approximat ron 50% compressio n. no stenting performed during IVUS procedure. [id number] Devora Ramos MD [facility] [place] [facility] [address] [facility] ,[address] [place] [address] 03/30/2023 11:50:18 03/30/2023 14:07:54 Varicose veins of lower extremity 85257611 I83.892 [id number] Devora Ramos MD [facility] [address] [facility] ,[address] [place] [address] 04/10/2023 15:17:40 04/11/2023 09:52:58 Varicose veins of lower extremity 27362234 I83.[id number] [facility] 3 [address] Lomb[address] [facility] [address] 05/19/2023 11:52:03 05/23/2023 11:36:02 Varicose veins of lower extremity 48264100 I83.893 Edema of l ower extremity 552939715 R60.0 Uterine leiomyoma 710198 05 D25.9 [id number] Vianney Gates [place] [address] [place] [address] 05/19/2023 11:52:34 05/19/2023 14:37:24 Varicose veins of lower extremity 06413556 I83.893 Health Concerns Section Related Observation LastModified by Organization Detai ls LastModified Time None Recorded Concern Status LastModified by Organization Details LastModified Time None Recorded Advance Directives Directive None Recorded Payers Encounter Date Sequence Insurance Name Policy Number Policy Wilson Covered Member ID Wilson Member ID Guarantor Name 02/03/2023 1 [facility] Roselyn Madden Rehkemper [id number] OI Roselyn Madden Rehkemper 03/30/2023 1 [facility] Roselyn Madden Rehkemper [id number] OI Roselyn Madden Rehkemper 04/10/2023 1 [facility] Roselyn Madden Rehkemper [id number] OI Roselyn Madden Rehkemper 05/19/2023 1 [facility] Roselyn Madden Rehkemper [id number] OI Roselyn Madden Rehkemper 05/19/2023 1 [facility] Roselyn Madden Rehkemper [id number] OI Roselyn Madden Rehkemper Notes Date Note Type Note Provider Name and Address Organization Details Recorded Time 02/03/2023 text/html 57 year old fema le status post IVUS 01/17/23. She continues to report aching, cramping and pain to her left lower extremity. The cramps wake her up at night. She continues to wear calf high compression therapy. She has intermittent pain to the right lower extremity that shoots from her hip down her right lower extremity she contributes to sciatic pain. LAVON GRIER, [place] [address], [address], [facility] and 02/05/2023 22:01:06 05/19/2023 text/html 58 year old fema le with a history of venous insufficiency, s/p vein closure, here for post vein [place] [address] [facility], [address], [address], [facility] and 05/21/2023 08:50:15 OBGyn Episode No OBEpisode recorded.
== END 2024-11-27 14:44 | disposition home or self-care (01) ==
PROVIDERS: PCP Family Medicine; Visit Provider Family Medicine
DX: Z12.31 Encounter for screening mammogram for malignant neoplasm of breast (principal)
CPT/HCPCS: 77063; 77067